=== PATIENT | female | born 1975 | race Caucasian/White ===

== ENCOUNTER 2020-09-27 11:08 | Outpatient (REF) | payer OTHER, SELFPAY | END 2020-09-27 11:09 | disposition home or self-care (01) | LOC: HO.LAB 11:08 | PROVIDERS: Visit Provider Internal Medicine | DX: Z20.828 Contact with and (suspected) exposure to other viral communicable diseases (principal) | CPT/HCPCS: C9803; U0003 ==

== ENCOUNTER 2020-10-14 07:27 | Outpatient (REF) | payer OTHER, SELFPAY | END 2020-10-14 07:28 | disposition home or self-care (01) | LOC: HO.LAB 07:27 | PROVIDERS: Visit Provider Internal Medicine | DX: Z20.828 Contact with and (suspected) exposure to other viral communicable diseases (principal) | CPT/HCPCS: C9803; U0003 ==

== ENCOUNTER → 2021-01-02 08:23 | Outpatient (BNVA) | payer OTHER, SELFPAY | PROVIDERS: PCP Internal Medicine; Visit Provider Nurse Practitioner | DX: Z13.89 Encounter for screening for other disorder (principal) | CPT/HCPCS: 99212 ==

== ENCOUNTER 2021-01-30 08:15 | Outpatient (REF) | payer OTHER, SELFPAY ==
--- NOTE | ~2021-01-30 | US_ITS ---
EXAMINATION: US ABDOMEN LIMITED CLINICAL INFORMATION: Nonalcoholic steatohepatitis. COMPARISON: Ultrasound abdomen 07/13/2019 and 11/10/2018. CT abdomen pelvis 03/05/2014. TECHNIQUE: Real-time imaging of the right upper quadrant abdominal viscera. FINDINGS: PANCREAS: Normal. LIVER: Liver echotexture is slightly increased. The liver is normal in size. The liver contour is normal. No focal hepatic lesion. There is no intrahepatic biliary duct dilatation seen. GALLBLADDER: Gallbladder is physiologically distended. There are several small echogenic nonmobile nonshadowing densities adjacent to the gallbladder wall suggestive of gallbladder wall polyps. The largest measures 2 x 3 mm. No definite gallstones are seen. The gallbladder wall does not appear thickened. There is no pericholecystic fluid. COMMON BILE DUCT: Normal in caliber measuring 0.46 cm in diameter. RIGHT KIDNEY: Normal. No hydronephrosis. No renal calculi or focal parenchymal lesions. The kidney measures 10.8 cm in maximum dimension. FREE FLUID: None. US/US abdomen limited IMPRESSION: Slightly echogenic liver. Gallbladder wall polyps.
[2021-01-30 11:31] LABS: Alanine Aminotransferase 22 U/L (0-31); Albumin Level 4.1 g/dL (3.5-5.0); Alkaline Phosphatase 62 U/L (39-117); Aspartate Amino Transferase 18 U/L (5-31); Bilirubin Direct 0.2 mg/dL (0.0-0.5); Bilirubin Total 0.4 mg/dL (0.0-1.0); Total Protein 6.6 g/dL (6.5-8.0)
[2021-01-31 11:47] LABS: Alpha Fetoprotein 3.3 ng/mL
== END 2021-01-30 08:16 | disposition home or self-care (01) ==
LOC: HO.HMGCX 08:15
PROVIDERS: PCP Internal Medicine; Visit Provider Nurse Practitioner
DX: K75.81 Nonalcoholic steatohepatitis (NASH) (principal)
CPT/HCPCS: 36415; 76705; 80076; 82105

== ENCOUNTER → 2021-05-04 08:16 | Outpatient (BNVA) | payer OTHER, SELFPAY | PROVIDERS: Visit Provider Nurse Practitioner ==

== ENCOUNTER 2021-07-09 07:46 | Outpatient (REF) | payer OTHER, SELFPAY ==
[2021-07-09 11:27] LABS: MANUAL DIFF FLAG NO
[2021-07-09 11:34] LABS: Basophils Percent Auto 0.5 % (0-2); Eosinophils Absolute Auto 0.1 X10*3/uL (0.0-0.4); Eosinophils Percent Auto 0.9 % (0-4); Hematocrit 40.8 % (37-47); Hemoglobin 13.9 g/dl (12.0-16.0); Imm Gran Abs Auto 0.02 X10*3/uL (0.00-0.03); Imm Gran Pct Auto 0.3 % (0.0-0.4); Lymphocytes Percent Auto 14.9 % (20-40); Mean Corpuscular HGB Conc 34.1 g/dl (31.0-35.0); Mean Corpuscular Volume 87.9 fL (80-98); Mean Platelet Volume 11.1 fL (9.4-12.3); Monocytes Absolute Auto 0.6 X10*3/uL (0.1-1.2); Neutrophils Absolute Auto 4.9 X10*3/uL (2.0-8.3); Neutrophils Percent Auto 74.4 % (45-73); Platelet Count 253 X10*3/uL (160-400); Red Blood Count 4.64 X10*6/uL (4.20-5.50); Red Cell Distribution Width 12.6 % (11.0-16.0); White Blood Count 6.6 X10*3/uL (4.8-10.8)
[2021-07-09 11:51] LABS: Alanine Aminotransferase 21 U/L (0-31); Anion Gap 12 (12-20); Aspartate Amino Transferase 21 U/L (5-31); Blood Urea Nitrogen 10 mg/dL (9-16); Calcium 9.3 mg/dL (8.4-10.2); Carbon Dioxide 23 mmol/L (22-29); Chloride 105 mmol/L (96-108); Cholesterol 153 mg/dL; Estimated Glomerular Filt Rate > 60; Glucose Fasting 94 mg/dL (60-99); HDL Cholesterol 56 mg/dL; LDL Cholesterol Calculated 84 mg/dl; Potassium 4.2 mmol/L (3.3-5.1); Sodium 136 mmol/L (135-145); Triglycerides 68 mg/dL
== END 2021-07-09 07:47 | disposition home or self-care (01) ==
LOC: HO.HMGCLDS 07:46
PROVIDERS: PCP Internal Medicine; Visit Provider Nurse Practitioner
DX: I10 Essential (primary) hypertension (principal)
CPT/HCPCS: 36415; 80048; 80061; 84450; 84460; 85025

== ENCOUNTER 2021-09-25 07:52 | Outpatient (REF) | payer OTHER, SELFPAY ==
[2021-09-27 19:51] LABS: TS Negative Control Passed; TS Panel A 0; TS Panel B 0; TS Positive Control Passed; TSpotTB Negative (Negative)
== END 2021-09-25 07:53 | disposition home or self-care (01) ==
LOC: HO.HMGCLDS 07:52
PROVIDERS: PCP Internal Medicine; Visit Provider Internal Medicine
DX: Z11.1 Encounter for screening for respiratory tuberculosis (principal)
CPT/HCPCS: 36415; 86481

== ENCOUNTER 2022-03-01 08:20 | Outpatient (REF) | payer OTHER, SELFPAY | END 2022-03-01 08:21 | disposition home or self-care (01) | LOC: HO.LNP 08:20 | PROVIDERS: Visit Provider Nurse Practitioner | DX: R19.7 Diarrhea, unspecified (principal) | CPT/HCPCS: 87045; 87046 ==

== ENCOUNTER 2022-03-07 08:08 | Outpatient (REF) | payer OTHER, SELFPAY ==
[2022-03-07 09:08] LABS: MANUAL DIFF FLAG NO
[2022-03-07 09:58] LABS: Basophils Percent Auto 0.4 % (0-2); Eosinophils Absolute Auto 0.1 X10*3/uL (0.0-0.4); Eosinophils Percent Auto 0.7 % (0-4); Hemoglobin 14.7 g/dl (12.0-16.0); Imm Gran Abs Auto 0.02 X10*3/uL (0.00-0.03); Imm Gran Pct Auto 0.3 % (0.0-0.4); Lymphocytes Absolute Auto 1.3 X10*3/uL (1.2-4.9); Lymphocytes Percent Auto 19.4 % (20-40); Mean Corpuscular HGB Conc 33.4 g/dl (31.0-35.0); Mean Corpuscular Hemoglobin 29.8 pg (27.0-33.0); Mean Corpuscular Volume 89.1 fL (80.0-98.0); Mean Platelet Volume 10.4 fL (9.4-12.3); Monocytes Absolute Auto 0.6 X10*3/uL (0.1-1.2); Monocytes Percent Auto 9.1 % (2-11); Neutrophils Absolute Auto 4.8 x10*3/uL (2.0-8.3); Neutrophils Percent Auto 70.1 % (45-73); Platelet Count 293 X10*3/uL (160-400); Red Blood Count 4.94 X10*6/uL (4.20-5.50); Red Cell Distribution Width 12.4 % (11.0-16.0); White Blood Count 6.9 X10*3/uL (4.8-10.8)
[2022-03-07 10:17] LABS: Alanine Aminotransferase 33 U/L (0-31); Albumin Level 4.5 g/dL (3.5-5.0); Alkaline Phosphatase 81 U/L (39-117); Anion Gap 11 (12-20); Aspartate Amino Transferase 23 U/L (5-31); Bilirubin Total 0.4 mg/dL (0.0-1.0); Blood Urea Nitrogen 17 mg/dL (9-16); Calcium 10.1 mg/dL (8.4-10.2); Carbon Dioxide 26 mmol/L (22-29); Chloride 104 mmol/L (96-108); Estimated Glomerular Filt Rate > 60; Glucose Random 104 mg/dL (60-115); Potassium 4.8 mmol/L (3.3-5.1); Sodium 136 mmol/L (135-145); Total Protein 7.7 g/dL (6.5-8.0)
[2022-03-13 11:10] LABS: Alpha Fetoprotein 4.1 ng/mL
== END 2022-03-07 08:09 | disposition home or self-care (01) ==
LOC: HO.LAB 08:08
PROVIDERS: PCP Internal Medicine; Referring Provider Internal Medicine; Visit Provider Nurse Practitioner
DX: K75.81 Nonalcoholic steatohepatitis (NASH) (principal)
CPT/HCPCS: 36415; 80053; 82105; 85025; 99212

== ENCOUNTER 2022-04-08 08:06 | Outpatient (REF) | payer OTHER, SELFPAY ==
--- NOTE | ~2022-04-08 | US_ITS ---
EXAMINATION: US ABDOMEN LIMITED CLINICAL INFORMATION: Nonalcoholic steatohepatitis. COMPARISON: Limited abdominal ultrasound 01/30/2021. Ultrasound abdomen 07/13/2019. CT abdomen and pelvis 03/05/2014. TECHNIQUE: Real-time imaging of the right upper quadrant abdominal viscera. FINDINGS: PANCREAS: Normal. LIVER: Normal. The liver is normal in size. The liver contour is normal. Parenchymal echogenicity is normal. No focal hepatic lesion. There is no intrahepatic biliary duct dilatation seen. GALLBLADDER: Normal The gallbladder is physiologically distended without evidence of stones, sludge, polyps, wall thickening or pericholecystic fluid. The previously seen gallbladder polyps are not appreciated on the current exam. COMMON BILE DUCT: Normal in caliber measuring 0.5 cm in diameter. RIGHT KIDNEY: Mild fullness of the right renal pelvis. No hydronephrosis. No renal calculi or focal parenchymal lesions. The kidney measures 11.6 cm in maximum dimension. FREE FLUID: None. US/US abdomen limited IMPRESSION: Normal-appearing liver. Normal-appearing gallbladder. Previously identified gallbladder wall polyps not appreciated on the current exam.
[2022-04-13 16:57] LABS: Pancreatic Elastase-1 486 mcg/g
== END 2022-04-08 08:07 | disposition home or self-care (01) ==
LOC: HO.US 08:06
PROVIDERS: PCP Internal Medicine; Visit Provider Nurse Practitioner
DX: K75.81 Nonalcoholic steatohepatitis (NASH) (principal); K58.0 Irritable bowel syndrome with diarrhea
CPT/HCPCS: 76705; 82656

== ENCOUNTER → 2022-04-16 08:01 | Outpatient (BNVA) | payer OTHER, SELFPAY | PROVIDERS: PCP Internal Medicine; Visit Provider Nurse Practitioner | DX: K58.0 Irritable bowel syndrome with diarrhea (principal); K21.9 Gastro-esophageal reflux disease without esophagitis; K75.81 Nonalcoholic steatohepatitis (NASH) | CPT/HCPCS: 99212 ==

== ENCOUNTER → 2022-06-26 08:24 | Outpatient (BNVA) | payer OTHER, SELFPAY | PROVIDERS: PCP Internal Medicine; Visit Provider Nurse Practitioner | DX: K58.0 Irritable bowel syndrome with diarrhea (principal); K63.89 Other specified diseases of intestine; K75.81 Nonalcoholic steatohepatitis (NASH) | CPT/HCPCS: 99212 ==

== ENCOUNTER → 2022-09-04 08:13 | Outpatient (BNVA) | payer OTHER, SELFPAY | PROVIDERS: PCP Internal Medicine; Visit Provider Nurse Practitioner | DX: K58.0 Irritable bowel syndrome with diarrhea (principal); A04.4 Other intestinal Escherichia coli infections; K63.89 Other specified diseases of intestine; K75.81 Nonalcoholic steatohepatitis (NASH) | CPT/HCPCS: 99212 ==

== ENCOUNTER 2022-10-31 09:07 | Outpatient (REF) | payer OTHER, SELFPAY ==
--- NOTE | ~2022-10-31 | US_ITS ---
EXAMINATION: US ABDOMEN LIMITED CLINICAL INFORMATION: Nonalcoholic steatohepatitis. COMPARISON: Limited abdominal ultrasound 04/08/2022 and 01/30/2021. CT abdomen and pelvis 03/05/2014. TECHNIQUE: Real-time imaging of the right upper quadrant abdominal viscera. FINDINGS: PANCREAS: Normal. LIVER: The liver is normal in size. The liver contour is normal. Diffusely increased hepatic echogenicity and sound attenuation consistent with diffuse hepatic steatosis. No focal hepatic lesion. There is no intrahepatic biliary duct dilatation seen. GALLBLADDER: Previously seen gallbladder wall polyps not appreciated. The gallbladder is physiologically distended without evidence of stones, sludge, wall thickening or pericholecystic fluid. COMMON BILE DUCT: Normal in caliber measuring 0.5 cm in diameter. RIGHT KIDNEY: Normal. No hydronephrosis. No renal calculi or focal parenchymal lesions. The kidney measures 11.2 cm in maximum dimension. FREE FLUID: None. US/US abdomen limited IMPRESSION: Findings consistent with diffuse hepatic steatosis. Previously noted gallbladder wall polyps not shown.
[2022-10-31 11:34] LABS: Color Urine Yellow; Glucose Urine UA Negative (Negative); Leukocyte Esterase Urine Negative (Negative); Nitrite Urine Negative (Negative); PH 6.5 (5.0-9.0); Urine Blood Negative (Negative); Urine Ketones Negative (Negative); Urine Protein Negative (Neg-Trace)
[2022-10-31 11:36] LABS: Appearance Urine Clear
[2022-10-31 11:51] LABS: Glucose Fasting 107 mg/dL (60-99)
[2022-10-31 12:00] LABS: Alanine Aminotransferase 96 U/L (0-31); Albumin Level 4.4 g/dL (3.5-5.0); Alkaline Phosphatase 78 U/L (39-117); Aspartate Amino Transferase 56 U/L (5-31); Bilirubin Direct 0.2 mg/dL (0.0-0.5); Bilirubin Total 0.5 mg/dL (0.0-1.0); Cholesterol 183 mg/dL; HDL Cholesterol 58 mg/dL; LDL Cholesterol Calculated 111 mg/dl; Total Protein 7.2 g/dL (6.5-8.0); Triglycerides 70 mg/dL
[2022-11-05 13:04] LABS: Mitochondrial Antibodies NEGATIVE (NEGATIVE)
[2022-11-05 23:29] LABS: Smooth Muscle Antibody <20 U (<20)
== END 2022-10-31 09:08 | disposition home or self-care (01) ==
LOC: HO.HMGCX 09:07
PROVIDERS: Absent Provider Internal Medicine; PCP Internal Medicine; Visit Provider Nurse Practitioner
DX: Z00.01 Encounter for general adult medical examination with abnormal findings (principal); K75.81 Nonalcoholic steatohepatitis (NASH); R35.0 Frequency of micturition
CPT/HCPCS: 36415; 76705; 80061; 80076; 81003; 82105; 82947; 86015; 86255; 86256

== ENCOUNTER → 2022-11-07 08:13 | Outpatient (BNVA) | payer OTHER, SELFPAY | PROVIDERS: PCP Internal Medicine; Visit Provider Nurse Practitioner | DX: K75.81 Nonalcoholic steatohepatitis (NASH) (principal); K58.0 Irritable bowel syndrome with diarrhea | CPT/HCPCS: 99212 ==

== ENCOUNTER → 2023-01-24 08:09 | Outpatient (BNVA) | payer OTHER, SELFPAY | PROVIDERS: PCP Internal Medicine; Referring Provider Internal Medicine; Visit Provider Nurse Practitioner | DX: K58.0 Irritable bowel syndrome with diarrhea (principal); K75.81 Nonalcoholic steatohepatitis (NASH); F41.1 Generalized anxiety disorder | CPT/HCPCS: 99212 ==

== ENCOUNTER 2023-07-09 08:29 | Outpatient (AMB) | payer OTHER, SELFPAY ==
[2023-07-09 08:36] VITALS: BP 132/78; BMI 28.5
--- NOTE | 2023-07-09 08:36 | MHC.OFFVIS ---
Intake Vital Signs 07/09/23 08:36 Height 5 ft 6 in Weight 176 lb 12.972 oz BMI 28.5 BP 132/78 Blood Pressure Location Lt brachial Position Sitting Intake Visit Reasons: 3 months Intake Note: Patient presents to in office visit today in follow up diarrhea. CC: is the same issue, diarrhea its an ongoing thing . Pt denies other GI concerns today. Powder Nipper Required: No Accompanied by: Self / Same As Patient Allergies Aluminum Allergy (Unknown, Verified 07/09/23 08:39) tingling, rash, rash nickel [NICKEL] Allergy (Unknown, Verified 07/09/23 08:39) RASH Sulfa (Sulfonamide Antibiotics) [SULFA (SULFONAMIDE ANTIBIOTICS)] Allergy (Unknown, Verified 07/09/23 08:39) DIFF BREATHING, rash, oral swelling, SOB HPI 3 months HPI Details Assessment & Plan (1) Irritable bowel syndrome with diarrhea: ?Code(s): K58.0 - Irritable bowel syndrome with diarrhea ?Plan: She does not like the idea of creon and instead has been taking milk thistle and this has helped her bowels, she thinks.? She objects to the Creon because she says ?then I have to always keep taking it. ?.? However, I point out that the same is true of the milk thistle.? I think she wants to practice a more holistic approach and this fine so I educate her that Creon really is a natural substance that are body makes to help us digest foods.? Nevertheless, I am totally fine with her just using the milk thistle for a while and let us see how it goes.? She has a small subconjunctival hemorrhage in her inner canthus left eye today. ? coughing/rubbing.? She questions and this is related to her liver but I reassure her that with her current liver function this is not likely.? It is more likely related to her chronic aspirin therapy and is a minor an un concerning affect. She has a lot of questions asking if her liver is causing her to have greasy stools.? I tell her that that is not true this is more a function of water pancreas is producing are not producing.? She has ends concerned about pancreatic cancer and ?what is wrong with my organs? ? I let her know that it is not a matter of a major pathology simply that we all age differently and sometimes are organs change how sufficiently they can process certain foods depending on our genetic background.? I encouraged her that as long as she maintains her healthy lifestyle, she exercises and watches her diet, she her liver should be fine for the rest of her life.? She was referred to me to make sure there were no other concerning processes and to be monitored.? I explained this is a chronic condition much like hypertension the just needs to be monitored so that there was no end-organ damage.? She tells me she has avoid alcohol completely since we last met.? And while this is fine the only problem would be if she drank on a daily basis having an occasional drink is not going to be a problem.? I also counseled her that she should not worry about utilizing [id number] medications so long as she follows the instructions on the box and does not exceed recommended dosages. After this she feels quite reassured.? This was a long Education session given the level of her anxiety and I do not want her stressing about this situation since stress can bring its own set of problems. ROV 3 mos.? At this time we will run more liver enzymes and do another ultrasound check her progress. (2) BERTRAND (nonalcoholic steatohepatitis): ?Comment: ?2018 AST/ALT 26/51 with the remainder normal, baseline alpha fetoprotein 3.6, ferritin 29, 02/2018 hepatitis a B and C negative, JOSEPH 2018 negative She says she is insulin resistant was on metformin when . 10/11/1901/05/23 ?07:5509:25 Anti-Mitochondrial Ab NEGATIVE Anti-Smooth Muscle Ab <20 HIV 1&2 Antigen & Ab negative * CURRENT LABS 10/31/2300/05/23 ?09:2509:25 Total Bilirubin 0.5 Direct Bilirubin 0.2 AST 56 H ALT 96 H Alkaline Phosphatase 78 Alpha Fetoprotein 4.0 ULTRASOUND OF THE ABDOMEN? 11/05/22 IMPRESSION: Findings consistent with diffuse hepatic steatosis. ? Previously noted gallbladder wall polyps not shown. ?Code(s): K75.81 - Nonalcoholic steatohepatitis (BERTRAND) (3) Generalized anxiety disorder: ?Code(s): F41.1 - Generalized anxiety disorder : TODAYS VISIT She still has not tried the creon. She only has success with her stooling when she takes her wild oregano or an antimicrobial. She still feels that the e coli infection is still in her. She has lost weight, she has been running more and this may be why. She is also taking Milk Thistle. She plans to continue this. She is agreeable to having repeat labs and an US. She will also be seeing her PCP soon and will require labs for this as well. She asks if she can try retreating with Xifaxan and I think this is reasonable given that has helped with her gas bloating and diarrhea in the past. after US [facility] Medical History Essential hypertension Lymphopenia Generalized anxiety disorder BERTRAND (nonalcoholic steatohepatitis) GERD (gastroesophageal reflux disease) Irritable bowel syndrome with diarrhea Surgical History History of esophagogastroduodenoscopy (EGD) H/O colonoscopy Family History Mother Rheumatoid arthritis Social History Household Members: Children Housing: Apartment Alcohol intake: current Alcohol intake frequency: does not drink Patient Tobacco Use Status: Former Tobacco user e-Cigarette/Vaping Use: Never Used Current occupational status: employed Cognitive needs: No Hearing needs: No Vision needs: No Review of Systems Const Denies fatigue, Denies fever(s), Denies night sweats, Denies poor appetite and Reports weight loss ENT Reports Normal hearing present, Denies dental pain, Denies dysphagia, Denies hearing loss, Denies mouth pain, Denies odynophagia, Denies throat swelling, Denies tongue swelling and Reports other (Dentition adequate) Card Reports no additional complaints Resp Reports no additional complaints GI Denies abdominal pain, Denies melena, Reports bloating, Denies hematochezia, Denies constipation, Denies GI cramping, Denies dysphagia, Denies excessive flatus, Denies early satiety, Denies heartburn, Reports diarrhea, Denies nausea, Denies odynophagia, Denies vomiting and Denies hematemesis Skin/Breast Denies pruritus, Denies lesions, Denies rash and Denies jaundice Neuro Reports Normal hearing present and Denies Abnormal speech present Endo Denies fatigue Aller/Immun Denies throat swelling and Denies tongue swelling Physical Exam Vital Signs: Last Vital Signs BP 132/78 07/09/23 08:36 BMI result Body Mass Index 28.5 Const General: cooperative, no acute distress, well developed and well groomed Nutritional Appearance: average body habitus and well nourished Orientation/consciousness: oriented to person, oriented to place and oriented to time Limitations: No language barrier HEENT Head: Yes normocephalic and Yes atraumatic Eyes General: appearance normal, both eyes and all related structures Pupils: Equal, round and reactive pupils present Neck Neck: Yes normal visual inspection and Yes no lymphadenopathy Thyroid: Thyroid normal Resp Effort & Inspection: normal respiratory effort and able to speak in complete sentences Auscultation: clear to auscultation bilaterally Cardio Rate: regular rate Rhythm: regular rhythm Heart sounds: Normal, physiologic split S2 sound present Peripheral pulses: radial pulses present and posterior tibial pulses present GI Inspection: No distended and No Abdominal panniculus present Palpation (GI): Soft to palpation, nontender, no guarding, not rigid and No hepatosplenomegaly present Percussion: Yes normal to percussion Auscultation: normal bowel sounds Rectal Exam - Female: deferred Skin General skin exam: no rashes or lesions noted, turgor normal, skin not dry, no jaundice, No spider nevi and no striae Rashes: no rashes Nails: normal Neuro General: oriented to person, oriented to place and oriented to time Cranial nerves: Yes Equal, round and reactive pupils present and Yes Normal hearing present Speech: No Abnormal speech present Extrem General: Yes normal to inspection, No clubbing, No cyanosis and No edema Psych Appearance: grossly normal and well kempt Mental Status: mental status grossly normal Speech and movement: Normal speech and movement present Affect: normal affect Attitude: cooperative Thought process: Normal thought process present and not confabulating Thought content: Normal thought content present Insight: Limited insight present (Psych) Judgement: Limited judgement present (Psych) Assessment & Plan Assessment & Plan (1) Irritable bowel syndrome with diarrhea: Code(s): K58.0 - Irritable bowel syndrome with diarrhea Plan: She still has not tried the creon. She only has success with her stooling when she takes her wild oregano or an antimicrobial. She still feels that the e coli infection is still in her. She has lost weight, she has been running more and this may be why. She is also taking Milk Thistle. She plans to continue this. She is agreeable to having repeat labs and an US. She will also be seeing her PCP soon and will require labs for this as well. She asks if she can try retreating with Xifaxan and I think this is reasonable given that has helped with her gas bloating and diarrhea in the past. after US (2) Small intestinal bacterial overgrowth: Code(s): K63.89 - Other specified diseases of intestine (3) BERTRAND (nonalcoholic steatohepatitis): Comment: 2018 AST/ALT 26/51 with the remainder normal, baseline alpha fetoprotein 3.6, ferritin 29, 02/2018 hepatitis a B and C negative, JOSEPH 2017 negative She says she is insulin resistant was on metformin when . 10/11/1901/05/23 07:5509:25 Anti-Mitochondrial Ab NEGATIVE Anti-Smooth Muscle Ab <20 HIV 1&2 Antigen & Ab negative * CURRENT LABS 10/31/2300/05/23 09:2509:25 Total Bilirubin 0.5 Direct Bilirubin 0.2 AST 56 H ALT 96 H Alkaline Phosphatase 78 Alpha Fetoprotein 4.0 ULTRASOUND OF THE ABDOMEN 11/05/22 IMPRESSION: Findings consistent with diffuse hepatic steatosis. ? Previously noted gallbladder wall polyps not shown. Code(s): K75.81 - Nonalcoholic steatohepatitis (BERTRAND) Orders: Orders Liver Panel Today K75.81 - Nonalcoholic steatohepatitis (BERTRAND) Alpha Fetoprotein Today K75.81 - Nonalcoholic steatohepatitis (BERTRAND) US abdomen complete Today K75.81 - Nonalcoholic steatohepatitis (BERTRAND) Medications: New rifaximin (Xifaxan) 550 mg PO BID 10 days 20 tabs 0RF K63.89 - Other specified diseases of intestine Coding Level of Care Code Est Pt Level 3 (28866) Diagnoses Irritable bowel syndrome with diarrhea K58.0 Small intestinal bacterial overgrowth K63.89 BERTRAND (nonalcoholic steatohepatitis) K75.81
== END 2023-07-09 10:02 | disposition home or self-care (01) ==
PROVIDERS: PCP Internal Medicine; Visit Provider Nurse Practitioner
DX: K58.0 Irritable bowel syndrome with diarrhea (principal); K63.89 Other specified diseases of intestine; K75.81 Nonalcoholic steatohepatitis (NASH)
CPT/HCPCS: 99213

== ENCOUNTER → 2023-07-09 08:29 | Outpatient (BNVA) | payer OTHER, SELFPAY | PROVIDERS: PCP Internal Medicine; Visit Provider Nurse Practitioner | DX: K58.0 Irritable bowel syndrome with diarrhea (principal); K75.81 Nonalcoholic steatohepatitis (NASH); K63.89 Other specified diseases of intestine | CPT/HCPCS: 99212 ==

== ENCOUNTER 2023-07-29 08:29 | Outpatient (REF) | payer OTHER, SELFPAY ==
--- NOTE | ~2023-07-29 | US_ITS ---
EXAMINATION: US ABDOMEN COMPLETE CLINICAL INFORMATION: Nonalcoholic steatohepatitis (BERTRAND). COMPARISON: Ultrasound abdomen limited 10/31/2022 and 04/08/2022. CT abdomen and pelvis 03/05/2014. TECHNIQUE: Real-time imaging of the abdominal viscera. FINDINGS: PANCREAS: Normal. ABDOMINAL AORTA: The proximal, mid, and distal segments are normal in caliber. INFERIOR VENA CAVA: Visualized portions are normal. LIVER: The liver is normal in size. The liver contour is normal. There is diffuse increased liver parenchymal echogenicity, consistent with hepatic steatosis. No focal hepatic lesion. There is no intrahepatic biliary duct dilatation seen. GALLBLADDER: Gallbladder appears normal. COMMON BILE DUCT: Normal in caliber measuring 0.9 cm in diameter. RIGHT KIDNEY: Normal. No hydronephrosis. No renal calculi or focal parenchymal lesions. The kidney measures 10.5 cm in maximum dimension. LEFT KIDNEY: Normal. No hydronephrosis. No renal calculi or focal parenchymal lesions. The kidney measures 9.7 cm in maximum dimension. SPLEEN: Normal. The spleen measures 9.6 cm in maximum dimension. FREE FLUID: None. US/US abdomen complete IMPRESSION: Hepatic steatosis. Otherwise normal abdominal ultrasound.
[2023-07-29 12:30] LABS: Alanine Aminotransferase 21 U/L (0-31); Albumin Level 4.3 g/dL (3.5-5.0); Alkaline Phosphatase 63 U/L (39-117); Aspartate Amino Transferase 17 U/L (5-31); Bilirubin Direct 0.2 mg/dL (0.0-0.5); Bilirubin Total 0.5 mg/dL (0.0-1.0)
[2023-07-31 12:48] LABS: Alpha Fetoprotein 3.2 ng/mL
== END 2023-07-29 08:30 | disposition home or self-care (01) ==
LOC: HO.HMGCX 08:29
PROVIDERS: PCP Internal Medicine; Visit Provider Nurse Practitioner
DX: K75.81 Nonalcoholic steatohepatitis (NASH) (principal)
CPT/HCPCS: 36415; 76700; 80076; 82105

== ENCOUNTER 2023-08-14 07:56 | Outpatient (AMB) | payer OTHER, SELFPAY ==
--- NOTE | 2023-08-14 08:03 | MHC.PC.OV ---
Vital Signs 08/14/23 08:06 Height 5 ft 7 in Weight 176 lb 4 oz BMI 27.6 BP 136/80 Blood Pressure Location Lt brachial Position Sitting Pulse 75 Pulse Source Pulse Oximeter Pulse Oximetry (%) 99 Oxygen Delivery Method Room Air Intake Visit Reasons: PE Intake Note: pt is here for a PE pt wants flu vaccine pap last yr at [facility] Is last menstrual period known: Yes Last menstrual period: 07/27/23 Allergies Aluminum Allergy (Unknown, Verified 08/14/23 08:31) tingling, rash, rash nickel [NICKEL] Allergy (Unknown, Verified 08/14/23 08:31) RASH Sulfa (Sulfonamide Antibiotics) [SULFA (SULFONAMIDE ANTIBIOTICS)] Allergy (Unknown, Verified 08/14/23 08:31) DIFF BREATHING, rash, oral swelling, SOB Medication List - Last Reconciled 08/14/23 by Anne Grey MD amlodipine 5 mg PO DAILY aspirin (Adult Low Dose Aspirin) 81 mg PO DAILY cholecalciferol (vitamin D3) 50 mcg PO DAILY clonidine HCl 0.2 mg PO BEDTIME cyanocobalamin (vitamin B-12) (Vitamin B-12) 50 mcg PO DAILY fluoxetine 40 mg PO DAILY lorazepam 1 mg PO DAILY multivitamin (Daily Multi-Vitamin tablet) 1 tab PO DAILY rifaximin (Xifaxan) 550 mg PO TID 14 days Tobacco use date assessed: 08/14/23 Dental Screening Dental Screen Date: 08/14/23 Did you have a dental visit in the last 12 months?: Yes Did you have a dental problem in the last 6 months where you did not have access to dental care?: No Was dental information given to patient?: Patient has dentist HPI PE HPI Details 48-year-old lady hypertension, IBS with diarrhea, generalized anxiety disorder, here today for physical exam. Has been feeling well with no complaints at present time. She goes to [facility] for her routine Pap and pelvic exam, done by Dr. Chinmay Schafer 03/07/2022 with negative findings. She has a longstanding history of hesitancy of undergoing mammogram due to radiation involved, and gets screening breast ultrasound, last done at [facility] 06/13/2022, with negative findings. She is up-to-date with her screening colonoscopy done by Dr. Zimmerman in 2014, due again in 2024 [facility] Medical History (Updated 08/14/23 @ 08:51 by Anne Grey MD) History of thyroid nodule Essential hypertension Lymphopenia Generalized anxiety disorder BERTRAND (nonalcoholic steatohepatitis) GERD (gastroesophageal reflux disease) Irritable bowel syndrome with diarrhea Surgical History History of esophagogastroduodenoscopy (EGD) H/O colonoscopy Family History Mother Rheumatoid arthritis Social History Household Members: Children Housing: Apartment Alcohol intake: current Alcohol intake frequency: does not drink Patient Tobacco Use Status: Former Tobacco user e-Cigarette/Vaping Use: Never Used Current occupational status: employed Cognitive needs: No Hearing needs: No Vision needs: No Female Reproductive History Menstrual Date of last menstrual period: 07/27/23 Other: goes to [facility] OBGY , gets breast US for screening , not mammogram Questionnaire PHQ-9 Over the last 2 weeks, how often have you been bothered by any of the following problems? 1. Little interest or pleasure in doing things: not at all 2. Feeling down, depressed, or hopeless: not at all 3. Trouble falling or staying asleep, or sleeping too much: more than half the days 4. Feeling tired or having little energy: not at all 5. Poor appetite or overeating: several days 6. Feeling bad about yourself - or that you are a failure or have let yourself or your family down: not at all 7. Trouble concentrating on things, such as reading the newspaper or watching television: not at all 8. Moving or speaking so slowly that other people could have noticed. Or the opposite - being so fidgety or restless that you have been moving around a lot more than usual: not at all 9. Thoughts that you would be better off or of hurting yourself in some way: not at all Total score: 3 Depression Screening Interpretation: Negative Depression Screening Done: Yes 83621 - PHQ-9 Billing: Yes Source: Developed by Drs. Luc Ruiz, Penny Lord, Arnoldo Fink and colleagues, with an educational lisa from [employer]. Thrive Questionnaire Date Thrive assessed: 08/14/23 I am a: Patient What is your living situation today?: I have a steady place to live Within the past 12 months, did the food you bought not last and you didn't have the money to get more?: Never true Within the past 12 months, did you worry whether your food would run out before you got money to buy more?: Never true Do you have trouble paying for medicines?: No Do you have trouble getting transportation to medical appointments?: No Do you have trouble paying your heating and electricity bill?: No Do you have trouble taking care of your child, family member or friend?: No Do you have trouble with day-to-day activities such as bathing, preparing meals, shopping, managing finances, etc.?: No Are you currently unemployed and looking for a job?: No Are you interested in more education?: No AUDIT C Alcohol Use Questionnaire (AUDIT-C) 1. How often do you have a drink containing alcohol?: 2-4 times a month 2. How many drinks containing alcohol do you have on a typical day when you are drinking?: 1 or 2 3. How often do you have six or more drinks on one occasion?: Never Total Score: 2 KALI-7 AMB Questionnaire KALI-7 Date KALI - 7 assessed: 08/14/23 Feeling nervous, anxious, or on edge: 1 = Several days Not being able to stop or control worryin = More than half the days Worrying too much about different things: 2 = More than half the days Trouble relaxin = Several days Being so restless that it is hard to sit still: 0 = Not at all Becoming easily annoyed or irritable: 0 = Not at all Feeling afraid as if something awful might happen: 0 = Not at all Total KALI-7 score (0-4 normal; 5-9 mild; 10-14 moderate; 15-21 severe): 6 Source: Developed by Drs. Luc Ruiz, Penny Lord, Arnoldo Fink and colleagues, with an educational lisa from [employer]. KALI-7 Assessment Billing KALI-7 Assessment Tool: KALI-7 Assessment 58167 Review of Systems Const Denies fever(s), Denies night sweats, Denies poor appetite and Reports weight loss Eyes Reports no additional complaints ENT Reports Normal hearing present, Denies dental pain, Denies dysphagia, Denies hearing loss, Denies mouth pain, Denies odynophagia, Denies throat swelling and Denies tongue swelling Card Reports no additional complaints Resp Reports no additional complaints GI Denies abdominal pain, Denies melena, Reports bloating, Denies hematochezia, Denies constipation, Denies GI cramping, Denies dysphagia, Denies excessive flatus, Denies early satiety, Denies heartburn, Reports diarrhea, Denies nausea, Denies odynophagia, Denies vomiting and Denies hematemesis Reports no additional complaints Musc Reports no additional complaints Skin/Breast Denies breast pain, Denies breast mass, Denies pruritus, Denies lesions, Denies rash and Denies jaundice Neuro Reports no additional complaints, Reports Normal hearing present and Denies Abnormal speech present Psych Reports no additional complaints Endo Reports no additional complaints Jd/Lymph Reports no additional complaints Aller/Immun Denies throat swelling and Denies tongue swelling Physical exam (Primary Care) Vital Signs: Last Vital Signs Pulse 75 08/14/23 08:06 BP 136/80 08/14/23 08:06 Pulse Ox 99 08/14/23 08:06 Oxygen Delivery Method Room Air 08/14/23 08:06 BMI result Body Mass Index 27.6 Tobacco/Smoking Status: Tobacco use Status Tobacco use date assessed 08/14/23 08/14/23 08:17 Patient Tobacco Use Status Former Tobacco user 08/14/23 08:03 e-Cigarette/Vaping Use Never Used 08/14/23 08:03 PHQ-9: PHQ-9 Score PHQ-9: Total score 5 08/15/23 00:39 Depression Screening Interpretation: Negative Thrive Assessment: Date of Thrive Assessment Date Thrive assessed 08/14/23 08/14/23 08:32 Const General: cooperative, comfortable and no acute distress Orientation/consciousness: patient oriented x3 HENMT Ears: hearing grossly normal bilaterally, external ears normal and Abnormal EAC present excessive cerumen General nose exam: Normal external nose present, Normal nasal mucous membranes and turbinates present and No nasal discharge present Mouth: oropharynx normal and moist mucous membranes Eyes General: appearance normal, both eyes and all related structures Conjunctivae: conjunctivae normal Pupils: Equal, round and reactive pupils present EOM: EOMs intact bilaterally Neck Neck: Yes full ROM, Yes no lymphadenopathy and Yes supple Thyroid: solitary palpable nodule on the right Chest Chest palpation & inspection: normal inspection of the chest and normal palpation of entire chest wall Breast/axilla palpation: normal palpation of the breasts and normal palpation of the axillae Resp Effort & Inspection: normal respiratory effort and able to speak in complete sentences Auscultation: clear to auscultation bilaterally Cardio Rate: regular rate Rhythm: regular rhythm Heart sounds: S1 normal heart sound present and S2 normal heart sound present GI Inspection: Yes normal to inspection Palpation (GI): Soft to palpation, nontender and no masses Auscultation: normal bowel sounds General: Yes deferred (Up-to-date with Pap and pelvic exam 03/07/2022 done at [facility]) Back/Spine/Pelvis Cervical Spine: cervical ROM normal Thoracic/Lumbar Spine: thoracic and lumbar spine normal to inspection Skin Other: Hello Kira tattoo on lower back General skin exam: no rashes or lesions noted Neuro General: patient oriented x3, gait normal, tone normal, moves all extremities, Normal light touch and pain sensation and no focal motor deficits Cranial nerves: Yes Equal, round and reactive pupils present and Yes Normal hearing present Cognition (Neuro): normal cognition Speech: No Abnormal speech present Gait exam (Neuro): Normal gait present Motor exam (neuro): 5/5 motor strength present throughout Extrem General: Yes full ROM, Yes no joint enlargement, Yes no pedal edema, Yes no calf tenderness and Yes normal gait Psych Appearance: grossly normal Mental Status: mental status grossly normal Speech and movement: Normal speech and movement present Affect: normal affect Attitude: cooperative Office Procedures Flu Questionnaire Does the patient have a severe egg allergy?: No Does the patient have severe life threatening allergies?: No Does the patient have a fever or illness today?: No Has the patient ever had Guillain-Greenfield Syndrome?: No Has the patient ever had any past reaction to a flu shot?: No Immunizations flu vacc [id number] 6mos up(PF) 60 mcg(15 mcgx4)/0.5 mL IM syringe Performing Provider: Anne Grey MD Performing Location: [facility] Administered by: Maria G Minaya CMA on 08/14/23 08:24 Dose Route Admin Location Dispensed Lot Number Expiration Date NDC Gym Manager 0.5 mL IM Right Deltoid 0.5 mL [id number] 04/25/24 [id number] [employer] VIS Given Date VIS Provided VIS Publication Date 08/14/23 Single Vaccine 21 Eligibility Eligibility Date Funding Source Not VFC Eligible 08/14/23 Private Results Reviewed Results Reviewed: NTERED: 07/29/23-[address]: Anne Grey MD ORDERED: Liver Panel Test Result Flag Reference Site Total Bili 0.5 0.0-1.0 mg/dL Direct Bili 0.2 0.0-0.5 mg/dL AST (GOT) 17 5-31 U/L ALT (GPT) 21 0-31 U/L Protein, Total 7.0 6.5-8.0 g/dL Alb 4.3 3.5-5.0 g/dL Alk Phos 63 39-117 U/L Assessment and Plan Assessment & Plan (1) Annual visit for general adult medical examination with abnormal findings: Code(s): Z00.01 - Encounter for general adult medical examination with abnormal findings Plan: Will check appropriate labs. Recommended dental visit every 6 months and regular eye exams, at least every 2 years. Take adequate calcium in diet and vitamin-D 3 at 2000 IU per cap once a day, in addition to weight-bearing exercises to help maintain good muscle tone and weight control. Instructed to do self-breast exam, and currently up-to-date with her yearly mammogram, and cervical cancer screening, goes to [facility] OBGYN, sees Dr. Chinmay Schafer. Up-to-date with her screening Colonoscopy due again in 2024. Flu vaccine given today, reminded to get her COVID booster. Up-to-date with Tdap (2) Generalized anxiety disorder: Code(s): F41.1 - Generalized anxiety disorder Plan: Continue with clonidine, lorazepam as needed and fluoxetine, sees therapist regularly (3) Irritable bowel syndrome with diarrhea: Code(s): K58.0 - Irritable bowel syndrome with diarrhea Plan: Currently on rifaximin, followed by GI (4) Essential hypertension: Code(s): I10 - Essential (primary) hypertension Plan: Blood pressure at goal of less than 130/80. Continue with amlodipine 5 mg daily. Reinforced importance of following a low sodium diet, getting regular exercise, and lowering stress levels. (5) History of thyroid nodule: Code(s): Z86.39 - Personal history of other endocrine, nutritional and metabolic disease Plan: Thyroid ultrasound ordered as well as free T4 and TSH level Orders: Orders Influenza [id number] Immunization 08/14/23 Z23 - Encounter for immunization Vitamin D 25-OH Total 08/14/23 F41.1 - Generalized anxiety disorder, I10 - Essential (primary) hypertension, K58.0 - Irritable bowel syndrome with diarrhea, Z00.01 - Encounter for general adult medical examination with abnormal findings Basic Metabolic Panel Fasting 08/14/23 F41.1 - Generalized anxiety disorder, I10 - Essential (primary) hypertension, K58.0 - Irritable bowel syndrome with diarrhea, Z00.01 - Encounter for general adult medical examination with abnormal findings TSH reflex Free T4 08/14/23 Z86.39 - Personal history of other endocrine, nutritional and metabolic disease Lipid Panel 08/14/23 F41.1 - Generalized anxiety disorder, I10 - Essential (primary) hypertension, K58.0 - Irritable bowel syndrome with diarrhea, Z00.01 - Encounter for general adult medical examination with abnormal findings Complete Blood Count Auto Diff 08/14/23 F41.1 - Generalized anxiety disorder, I10 - Essential (primary) hypertension, K58.0 - Irritable bowel syndrome with diarrhea, Z00.01 - Encounter for general adult medical examination with abnormal findings Vitamin B12 and Folate 08/14/23 F41.1 - Generalized anxiety disorder, I10 - Essential (primary) hypertension, K58.0 - Irritable bowel syndrome with diarrhea, Z00.01 - Encounter for general adult medical examination with abnormal findings US thyroid 08/14/23 Z86.39 - Personal history of other endocrine, nutritional and metabolic disease Medications: Refilled amlodipine 5 mg PO DAILY 90 tabs 3RF I10 - Essential (primary) hypertension clonidine HCl 0.2 mg PO BEDTIME 90 tabs 3RF I10 - Essential (primary) hypertension Coding Level of Care Code Est Pt Prev Care 40-64y(27983) Diagnoses Annual visit for general adult medical examination with abnormal findings Z00.01 Generalized anxiety disorder F41.1 Irritable bowel syndrome with diarrhea K58.0 Essential hypertension I10 History of thyroid nodule Z86.39 Additional Codes KALI-7 Assessment Billing - KALI-7 Assessment Tool: KALI-7 Assessment 04119 ([id number])
[2023-08-14 08:06] VITALS: BP 136/80; PULSE 75; O2SAT 99; BMI 27.6
== END 2023-08-14 09:49 | disposition home or self-care (01) ==
PROVIDERS: Visit Provider Internal Medicine
DX: Z23 Encounter for immunization (principal)
CPT/HCPCS: 90471; 90686; 99396

== ENCOUNTER 2023-09-12 08:20 | Outpatient (REF) | payer OTHER, SELFPAY ==
--- NOTE | ~2023-09-12 | US_ITS ---
EXAMINATION: US THYROID CLINICAL INFORMATION: Personal history of other endocrine, nutritional and metabolic disease. COMPARISON: None available. TECHNIQUE: Linear transducer grayscale and color Doppler examination with attention to the region of the thyroid. FINDINGS: SIZE: Measurements of the thyroid lobes and nodules are given in sagittal, anteroposterior and transverse dimensions respectively. Right Thyroid Lobe: 6.2 x 1.7 x 2.1 cm, volume 11.5 mL. Parenchyma: The gland echotexture is heterogeneous. Thyroid vascularity is increased. Left Thyroid Lobe: 5.2 x 1.8 x 1.9 cm, volume 9.1 mL. Parenchyma: The gland echotexture is heterogeneous. Thyroid vascularity is increased. Isthmus: 0.39 cm in maximum AP dimension. Estimated total number of nodules greater than or equal to 1 cm: 3. Processing Engineer nodules are described as follows: 1. Location: Right inferior. Size: 1.6 x 0.82 x 1.4 cm, volume 0.95 mL. Nodule characteristics: Composition: Cannot be determined (2). Echogenicity: Very hypoechoic (3). Shape: Not taller than wide (0). Margins: Smooth (0). Echogenic Foci: Comet-tail artifacts (0). Punctate echogenic foci (3). ACR TI-RADS total points: 8 ACR TI-RADS category: 5 2. Location: Right inferior. Size: 2.0 x 1.0 x 1.5 cm, volume 1.5 mL. Nodule characteristics: Composition: Mixed cystic and solid (1). Echogenicity: Hypoechoic (2). Shape: Not taller than wide (0). Margins: Smooth (0). Echogenic Foci: None (0). ACR TI-RADS total points: 3 ACR TI-RADS category: 1 3. Location: Right mid. Size: 1.3 x 0.61 x 1.2 cm, volume 0.48 mL. Nodule characteristics: Composition: Cannot be determined (2). Echogenicity: Very hypoechoic (3). Shape: Not taller than wide (0). Margins: Smooth (0). Echogenic Foci: Punctate echogenic foci (3). ACR TI-RADS total points: 8 ACR TI-RADS category: 5 4. Location: Left inferior. Size: 0.62 x 0.33 x 0.50 cm, volume 0.05 mL. Nodule characteristics: Composition: Spongiform (0). Echogenicity: Anechoic (0). Shape: Not taller than wide (0). Margins: Smooth (0). Echogenic Foci: None (0). ACR TI-RADS total points: 0 ACR TI-RADS category: 1 NODES: No lymphadenopathy is seen in the tissue surrounding the thyroid gland. US/US thyroid IMPRESSION: 1.6 cm right TR 5 nodule and 1.3 cm right TR 5 thyroid nodules meet criteria for biopsy. Fine-needle aspiration recommended. This study was presented 09/15/2023 at 1:25 PM for interpretation. PSA staff will provide results to referring provider at this time. ACR TI-RADS RECOMMENDATION REFERENCE: Ultrasound-guided fine-needle aspiration, followup ultrasound, no further follow up. * TR1 (0 point) and TR2 (2 points): No FNA or follow up. * TR3 (3 points): FNA if more than or equal to 2.5 cm in maximum dimension, followup ultrasound in 1, 3 and 5 years if 1.5 to 2.4 cm in maximum dimension. * TR4 (4-6 points): FNA if more than or equal to 1.5 cm in maximum dimension, followup ultrasound in 1, 2, 3 and 5 years if 1 to 1.4 cm in maximum dimension. * TR5 (more than or equal to 7 points): FNA if more than or equal to 1 cm in maximum dimension, followup ultrasound every year for 5 years if 0.5 to 0.9 cm in maximum dimension. * TR3, TR4 or TR5 nodules that are below the size threshold for followup receive no follow up.
== END 2023-09-12 08:21 | disposition home or self-care (01) ==
LOC: HO.HMGCX 08:20
PROVIDERS: PCP Internal Medicine; Visit Provider Internal Medicine
DX: Z86.39 Personal history of other endocrine, nutritional and metabolic disease (principal)
CPT/HCPCS: 76536

== ENCOUNTER 2023-09-13 07:05 | Outpatient (REF) | payer OTHER, SELFPAY ==
[2023-09-13 11:07] LABS: MANUAL DIFF FLAG NO
[2023-09-13 11:10] LABS: Basophils Absolute Auto 0.1 X10*3/uL (0.0-0.2); Basophils Percent Auto 0.9 % (0-2); Eosinophils Absolute Auto 0.1 X10*3/uL (0.0-0.4); Hematocrit 41.1 % (37.0-47.0); Hemoglobin 13.9 g/dl (12.0-16.0); Imm Gran Abs Auto 0.01 X10*3/uL (0.00-0.03); Imm Gran Pct Auto 0.2 % (0.0-0.4); Lymphocytes Absolute Auto 1.3 X10*3/uL (1.2-4.9); Lymphocytes Percent Auto 22.7 % (20-40); Mean Corpuscular HGB Conc 33.8 g/dl (31.0-35.0); Mean Corpuscular Hemoglobin 29.7 pg (27.0-33.0); Mean Corpuscular Volume 87.8 fL (80.0-98.0); Mean Platelet Volume 10.6 fL (9.4-12.3); Monocytes Absolute Auto 0.5 X10*3/uL (0.1-1.2); Monocytes Percent Auto 7.8 % (2-11); Neutrophils Percent Auto 67.4 % (45-73); Platelet Count 272 X10*3/uL (160-400); Red Blood Count 4.68 X10*6/uL (4.20-5.50); Red Cell Distribution Width 12.4 % (11.0-16.0); White Blood Count 5.9 X10*3/uL (4.8-10.8)
[2023-09-13 11:39] LABS: Anion Gap 9 (12-20); Blood Urea Nitrogen 17 mg/dL (9-16); Calcium 9.1 mg/dL (8.4-10.2); Carbon Dioxide 28 mmol/L (22-29); Chloride 106 mmol/L (96-108); Cholesterol 175 mg/dL (<200); Estimated Glomerular Filt Rate > 60; Glucose Fasting 97 mg/dL (60-99); HDL Cholesterol 54 mg/dL (>40); LDL Cholesterol Calculated 106 mg/dL (<100); Sodium 139 mmol/L (135-145); Triglycerides 75 mg/dL (<150)
[2023-09-13 11:56] LABS: Folate 12.8 ng/mL (> or = 4.0); Vitamin B12 952 pg/mL (200-900)
[2023-09-13 12:00] LABS: TSH reflex Free T4 0.42 uIU/mL (0.32-4.0); Vitamin D 25-OH Total 62.8 ng/mL (>30)
== END 2023-09-13 07:06 | disposition home or self-care (01) ==
LOC: HO.HMGCLDS 07:05
PROVIDERS: PCP Internal Medicine; Visit Provider Internal Medicine
DX: Z00.01 Encounter for general adult medical examination with abnormal findings (principal); F41.1 Generalized anxiety disorder; K58.0 Irritable bowel syndrome with diarrhea; I10 Essential (primary) hypertension; Z86.39 Personal history of other endocrine, nutritional and metabolic disease
CPT/HCPCS: 36415; 80048; 80061; 82306; 82607; 82746; 84443; 85025

== ENCOUNTER 2023-09-30 13:02 | Outpatient (AMB) | payer OTHER, SELFPAY ==
--- NOTE | 2023-09-30 12:25 | A.OFFPC_ITS ---
Intake Visit Reasons: lab&US results [facility] [phone] Intake Note: pt is following up Lab and US results Allergies Aluminum Allergy (Unknown, Verified 09/30/23 14:27) tingling, rash, rash nickel [NICKEL] Allergy (Unknown, Verified 09/30/23 14:27) RASH Sulfa (Sulfonamide Antibiotics) [SULFA (SULFONAMIDE ANTIBIOTICS)] Allergy (Unknown, Verified 09/30/23 14:27) DIFF BREATHING, rash, oral swelling, SOB Medication List - Last Reconciled 09/30/23 by Anne Grey MD amlodipine 5 mg PO DAILY aspirin (Adult Low Dose Aspirin) 81 mg PO DAILY cholecalciferol (vitamin D3) 50 mcg PO DAILY clonidine HCl 0.2 mg PO BEDTIME cyanocobalamin (vitamin B-12) (Vitamin B-12) 50 mcg PO DAILY fluoxetine 40 mg PO DAILY lorazepam 1 mg PO DAILY multivitamin (Daily Multi-Vitamin tablet) 1 tab PO DAILY Tobacco use date assessed: 09/30/23 Dental Screening Dental Screen Date: 09/30/23 Did you have a dental visit in the last 12 months?: Yes Did you have a dental problem in the last 6 months where you did not have access to dental care?: No Was dental information given to patient?: Patient has dentist HPI lab&US results [facility] [phone] HPI Details 48-year-old lady here today for follow-u p on results of her recent fasting labs and thyroid ultrasound. She has history of thyroid nodule, was biopsied in her 20s which came back with benign findings. Has not had any follow-up since then. She however has been complaining of having frequent diarrhea and has been losing weight this past year. She was weighing 191 lb in October and now weighs 176 lb without changing her diet or exercise regimen. She also reports sometimes feeling something in the back of her throat when she swallows. However she denies any chest pain, no palpitations, no tremors, no increased fatigue or mood swings. Her latest labs showed normal lipids, electrolytes, glucose, vitamin-D and TSH level. Thyroid ultrasound however showed presence of 3 nodules more than 1 cm each, 2 of with meets criteria for fine-needle aspiration biopsy. [facility] Medical History (Updated 09/30/23 @ 14:38 by Anne Grey MD) Multinodular thyroid History of thyroid nodule Essential hypertension Lymphopenia Generalized anxiety disorder BERTRAND (nonalcoholic steatohepatitis) GERD (gastroesophageal reflux disease) Irritable bowel syndrome with diarrhea Surgical History History of esophagogastroduodenoscopy (EGD) H/O colonoscopy Family History Mother Rheumatoid arthritis Social History Household Members: Children Housing: Apartment Alcohol intake: current Alcohol intake frequency: does not drink Patient Tobacco Use Status: Former Tobacco user e-Cigarette/Vaping Use: Never Used Current occupational status: employed Cognitive needs: No Hearing needs: No Vision needs: No Questionnaire Thrive Questionnaire Date Thrive assessed: 08/14/23 KALI-7 AMB Questionnaire KALI-7 Date KALI - 7 assessed: 08/14/23 Source: Developed by Drs. Luc Ruiz, Penny Lord, Arnoldo Fink and colleagues, with an educational lisa from [employer]. Review of Systems Const Denies fever(s), Denies night sweats and Denies poor appetite Eyes Reports no additional complaints ENT Denies dental pain, Denies dysphagia, Denies hearing loss, Denies mouth pain, Denies odynophagia, Denies throat swelling and Denies tongue swelling Card Reports no additional complaints Resp Reports no additional complaints GI Denies abdominal pain, Denies melena, Reports bloating, Denies hematochezia, Denies constipation, Denies GI cramping, Denies dysphagia, Denies excessive flatus, Denies early satiety, Denies heartburn, Denies nausea and Denies odynophagia Reports no additional complaints Musc Reports no additional complaints Skin/Breast Denies pruritus, Denies lesions, Denies rash and Denies jaundice Neuro Reports no additional complaints Psych Reports no additional complaints Endo Reports no additional complaints Jd/Lymph Reports no additional complaints Aller/Immun Denies throat swelling and Denies tongue swelling Physical exam (Primary Care) Tobacco/Smoking Status: Tobacco use Status Tobacco use date assessed 09/30/23 09/30/23 12:26 Patient Tobacco Use Status Former Tobacco user 09/30/23 12:26 e-Cigarette/Vaping Use Never Used 09/30/23 12:26 Thrive Assessment: Date of Thrive Assessment Date Thrive assessed 08/14/23 09/30/23 12:26 Telehealth Telehealth Location of provider rendering services: practice address Location of patient: address on file Patient Identification confirmed using: Name, : Yes Telehealth method: video Patient verbally consented to treatment: Yes Patient verbally consented to billing insurance company: Yes Patient informed of any privacy concerns related to visit: Yes Minutes spent on Phone/Video with Pt.: 15 Results Reviewed Results Reviewed: Name: Angelika Deleon Age/Sex: 48/F : 1975 Unit#: [id number] Attend Dr: Anne Grey MD Re09/13/23 Status: DEP REF Location: [facility] Disch: SPEC : [id number] RICKY: 09/13/23 STATUS: COMP REQ : [id number] RECD: 09/13/[address]: Anne Grey MD COMP: 09/13/23 ENTERED: 09/13/[address]: ORDERED: CBC Auto Diff Test Result Flag Reference Site WBC 5.9 4.8-10.8 X10*3/uL RBC 4.68 4.20-5.50 X10*6/uL HGB 13.9 12.0-16.0 g/dl HCT 41.1 37.0-47.0 % MCV 87.8 80.0-98.0 fL MCH 29.7 27.0-33.0 pg MCHC 33.8 31.0-35.0 g/dl RDW 12.4 11.0-16.0 % PLT 272 160-400 X10*3/uL MPV 10.6 9.4-12.3 fL Neut Pct Auto 67.4 45-73 % ImGran Pct Auto 0.2 0.0-0.4 % Lymp Pct Auto 22.7 20-40 % [place] Pct Auto 7.8 2-11 % Eos Pct Auto 1.0 0-4 % Baso Pct Auto 0.9 0-2 % NRBC Pct Auto 0.0 0.0-0.2 /100WBC ANC Neut Abs # 4.0 2.0-8.3 x10*3/uL ImGran Abs Auto 0.01 0.00-0.03 X10*3/uL Lymph Abs Auto 1.3 1.2-4.9 X10*3/uL [place] Abs Auto 0.5 0.1-1.2 X10*3/uL Eos Abs Auto 0.1 0.0-0.4 X10*3/uL Baso Abs Auto 0.1 0.0-0.2 X10*3/uL NRBC Abs Auto 0.000 0.0-0.012 X10*3/uL thyroid US showed 1.6 cm right TR 5 nodule and 1.3 cm right TR 5 thyroid nodules meet criteria for biopsy. Fine-needle aspiration recommended. ORDERED: Met Prof Fast, Lipid Panel, Vitamin D 25-OH, TSH Rflx Test Result Flag Reference Site Sodium 139 135-145 mmol/L Potassium 4.0 3.3-5.1 mmol/L CL 106 96-108 mmol/L CO2 28 22-29 mmol/L Gap 9 L 12-20 BUN 17 H 9-16 mg/dL Creat 0.87 0.5-1.4 mg/dL EGFR > 60 NOTE: For -Sudanese individuals, multiply the result by 1.210. Chronic Kidney Disease: Estimated GFR < 60 mL/min/1.73m2 Severe Kidney Disease: Estimated GFR < 15 mL/min/1.73m2 FBS 97 60-99 mg/dL CA 9.1 # 8.4-10.2 mg/dL Triglyceride 75 <150 mg/dL Desirable Triglyceride: less than 150 mg/dL Borderline High Triglyceride 150-199 mg/dL High Triglyceride: 200-499 mg/dL Very High Triglyceride: greater than or equal to 5OO mg/dL Cholesterol 175 <200 mg/dL Desirable Cholesterol: less than 200 mg/dL Borderline High Cholesterol: 200-239 mg/dL High Cholesterol: greater than 239 mg/dL LDL Calculated 106 H <100 mg/dL Desirable LDL: less than 100 mg/dL Near Optimal/Above Optimal LDL: 110-129 mg/dL Borderline High LDL: 130-159 mg/dL High LDL: 160-189 mg/dL Very High LDL: greater than or equal to 190 mg/dL HDL 54 >40 mg/dL Desirable HDL: greater than 40 mg/dL Note: This HDL assay may give artificially low results in patients with liver disease. Vit D 25-OH Tot 62.8 >30 ng/mL Health Based Reference Values* < 20 ng/mL Deficient 20-30 ng/mL Insufficient > 30 ng/mL Sufficient *Valeria DEMARCO. N Engl J Med. 2007;357:266-280 Care must be taken in interpreting Vitamin D results from different laboratories and methodologies. Published data demonstrated that results from patients undergoing hemodialysis may show a negative bias when tested with various automated 25-OH vitamin D assays when compared to LC-MS/MS. When testing samples from patients whose predominant form of Vitamin D is Vitamin D2, such as patients receiving Vitamin D2 supplementation, results that are subtherapeutic should be confirmed with another method such as LC-MS/MS. TSH 0.42 0.32-4.0 uIU/mL Assessment and Plan Assessment & Plan (1) Multinodular thyroid: Code(s): E04.2 - Nontoxic multinodular goiter Plan: Recent TSH are within normal limits, rest of her labs are within normal limits as well. Thyroid ultrasound however showed presence of 3 nodules greater than 1 cm each,2 of which meets criteria for fine-needle biopsy. Referred to endocrine clinic for further evaluation and management. Orders: Referrals Endocrinology Referral E04.2 - Nontoxic multinodular goiter Coding Level of Care Code Tele Est Pt Level 3 (12062) Diagnoses Multinodular thyroid E04.2
== END 2023-09-30 16:58 | disposition home or self-care (01) ==
LOC: HO.HMGC 13:02
PROVIDERS: PCP Internal Medicine; Visit Provider Internal Medicine
DX: E04.2 Nontoxic multinodular goiter (principal)
CPT/HCPCS: 99213

== ENCOUNTER 2024-02-24 14:51 | Outpatient (AMB) | payer OTHER, SELFPAY ==
[2024-02-24 15:01] VITALS: BP 164/82; PULSE 80; BMI 28.1
--- NOTE | 2024-02-24 15:01 | A.OFFVIS_ITS ---
Vital Signs 02/24/24 15:01 Height 5 ft 7 in Weight 179 lb 7.3 oz BMI 28.1 BP 164/82 H Blood Pressure Location Lt brachial Position Sitting Pulse 80 Intake Visit Reasons: pt req follow up with provider Intake Note: Patient in office visit today in follow up of IBS with diarrhea. CC: Patient reports diarrhea and would like to discuss medications for it. Denies any new GI symptoms. Marshmallow Maker Required: No Accompanied by: Self / Same As Patient Allergies Aluminum Allergy (Unknown, Verified 02/24/24 15:03) tingling, rash, rash nickel [NICKEL] Allergy (Unknown, Verified 02/24/24 15:03) RASH Sulfa (Sulfonamide Antibiotics) [SULFA (SULFONAMIDE ANTIBIOTICS)] Allergy (Unknown, Verified 02/24/24 15:03) DIFF BREATHING, rash, oral swelling, SOB HPI HPI pt req follow up with provider: Details: Assessment & Plan (1) Irritable bowel syndrome with diarrhea: Code(s): K58.0 - Irritable bowel syndrome with diarrhea Plan: She still has not tried the creon. She only has success with her stooling when she takes her wild oregano or an antimicrobial. She still feels that the e coli infection is still in her. She has lost weight, she has been running more and this may be why. She is also taking Milk Thistle. She plans to continue this. She is agreeable to having repeat labs and an US. She will also be seeing her PCP soon and will require labs for this as well. She asks if she can try retreating with Xifaxan and I think this is reasonable given that has helped with her gas bloating and diarrhea in the past. after US (2) Small intestinal bacterial overgrowth: Code(s): K63.89 - Other specified diseases of intestine (3) BERTRAND (nonalcoholic steatohepatitis): Comment: 2018 AST/ALT 26/51 with the remainder normal, baseline alpha fetoprotein 3.6, ferritin , 02/2018 hepatitis a B and C negative, JOSEPH 2017 negative She says she is insulin resistant was on metformin when . 10/11/1901/05/23 07:5509:25 Anti-Mitochondrial Ab NEGATIVE Anti-Smooth Muscle Ab <20 HIV 1&2 Antigen & Ab negative * CURRENT LABS 10/31/2300/05/23 09:2509:25 Total Bilirubin 0.5 Direct Bilirubin 0.2 AST 56 H ALT 96 H Alkaline Phosphatase 78 Alpha Fetoprotein 4.0 ULTRASOUND OF THE ABDOMEN 11/05/22 IMPRESSION: Findings consistent with diffuse hepatic steatosis. ? Previously noted gallbladder wall polyps not shown. Code(s): K75.81 - Nonalcoholic steatohepatitis (BERTRAND) Orders: Orders Liver Panel Today K75.81 - Nonalcoholic steatohepatitis (BERTRAND) Alpha Fetoprotein Today K75.81 - Nonalcoholic steatohepatitis (BERTRAND) US abdomen complete Today K75.81 - Nonalcoholic steatohepatitis (BERTRAND) Medications: New rifaximin (Xifaxan) 550 mg PO BID 10 days 20 tabs 0RF K63.89 - Other specified diseases of intestine LABS: Laboratory Tests 07/29/23 09/13/23 08:32 07:10 Total Bilirubin 0.5 Direct Bilirubin 0.2 AST 17 ALT 21 Alkaline Phosphatase 63 Alpha Fetoprotein 3.2 TSH 0.42 ULTRASOUND OF THE ABDOMEN 07/30/23 FINDINGS: PANCREAS: Normal. ABDOMINAL AORTA: The proximal, mid, and distal segments are normal in caliber. INFERIOR VENA CAVA: Visualized portions are normal. LIVER: The liver is normal in size. The liver contour is normal. There is diffuse increased liver parenchymal echogenicity, consistent with hepatic steatosis. No focal hepatic lesion. There is no intrahepatic biliary duct dilatation seen. GALLBLADDER: Gallbladder appears normal. COMMON BILE DUCT: Normal in caliber measuring 0.9 cm in diameter. RIGHT KIDNEY: Normal. No hydronephrosis. No renal calculi or focal parenchymal lesions. The kidney measures 10.5 cm in maximum dimension. LEFT KIDNEY: Normal. No hydronephrosis. No renal calculi or focal parenchymal lesions. The kidney measures 9.7 cm in maximum dimension. SPLEEN: Normal. The spleen measures 9.6 cm in maximum dimension. FREE FLUID: None. US/US abdomen complete IMPRESSION: Hepatic steatosis. Otherwise normal abdominal ultrasound. TODAYS VISIT Her gas that is malodorous continues, she has diarrhea with loose greasy stools every am. She only seems to respond to homeopathic things, (wild oregano and garlic) but has been reading and would like a trial of flagyl. She has not yet tried creon. The garlic upsets her stomach. She continues on a probiotic. We review the labs and US and the labs are normal, US ? 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 ROV 4 weeks. [facility] Medical History Multinodular thyroid History of thyroid nodule Essential hypertension Lymphopenia Generalized anxiety disorder BERTRAND (nonalcoholic steatohepatitis) GERD (gastroesophageal reflux disease) Irritable bowel syndrome with diarrhea Surgical History History of esophagogastroduodenoscopy (EGD) H/O colonoscopy Family History Mother Rheumatoid arthritis Social History Household Members: Children Housing: Apartment Alcohol intake: current Alcohol intake frequency: does not drink Patient Tobacco Use Status: Former Tobacco user e-Cigarette/Vaping Use: Never Used Current occupational status: employed Cognitive needs: No Hearing needs: No Vision needs: No Review of Systems Const Denies fatigue, Denies fever(s), Denies night sweats, Denies poor appetite and Denies weight loss ENT Reports Normal hearing present, Denies dental pain, Denies dysphagia, Denies hearing loss, Denies mouth pain, Denies odynophagia, Denies throat swelling, Denies tongue swelling and Reports other (Dentition adequate) Card Reports no additional complaints Resp Reports no additional complaints GI Details: Denies abdominal pain, Denies melena, Reports bloating, Denies hematochezia, Denies constipation, Denies GI cramping, Denies dysphagia, Denies excessive flatus, Denies early satiety, Denies heartburn, Reports diarrhea, Denies nausea, Denies odynophagia, Denies vomiting and Denies hematemesis Skin/Breast Denies pruritus, Denies lesions, Denies rash and Denies jaundice Neuro Reports Normal hearing present and Denies Abnormal speech present Endo Denies fatigue Aller/Immun Denies throat swelling and Denies tongue swelling Physical Exam Vital Signs: Last Vital Signs Pulse 80 02/24/24 15:01 BP 164/82 H 02/24/24 15:01 BMI result Body Mass Index 28.1 Const General: cooperative, no acute distress, well developed and well groomed Nutritional Appearance: average body habitus and well nourished Orientation/consciousness: oriented to person, oriented to place and oriented to time Limitations: No language barrier HEENT Head: Yes normocephalic and Yes atraumatic Eyes General: appearance normal, both eyes and all related structures Pupils: Equal, round and reactive pupils present Neck Neck: Yes normal visual inspection and Yes no lymphadenopathy Thyroid: Thyroid normal Resp Effort & Inspection: normal respiratory effort and able to speak in complete sentences Auscultation: clear to auscultation bilaterally Cardio Rate: regular rate Rhythm: regular rhythm Heart sounds: Normal, physiologic split S2 sound present Peripheral pulses: radial pulses present and posterior tibial pulses present GI Inspection: No distended and No Abdominal panniculus present Palpation (GI): Soft to palpation, nontender, no guarding, not rigid and No hepatosplenomegaly present Percussion: Yes normal to percussion Auscultation: normal bowel sounds Rectal Exam - Female: deferred Skin General skin exam: no rashes or lesions noted, turgor normal, skin not dry, no jaundice, No spider nevi and no striae Rashes: no rashes Nails: normal Neuro General: oriented to person, oriented to place and oriented to time Cranial nerves: Yes Equal, round and reactive pupils present and Yes Normal hearing present Speech: No Abnormal speech present Extrem General: Yes normal to inspection, No clubbing, No cyanosis and No edema Psych Appearance: grossly normal and well kempt Mental Status: mental status grossly normal Speech and movement: Normal speech and movement present Affect: normal affect Attitude: cooperative Thought process: Normal thought process present and not confabulating Thought content: Normal thought content present Insight: Fair insight present (Psych) Judgement: Fair judgement present (Psych) Results Reviewed Results Reviewed: Laboratory Tests 07/29/23 09/13/23 08:32 07:10 Total Bilirubin 0.5 Direct Bilirubin 0.2 AST 17 ALT 21 Alkaline Phosphatase 63 Alpha Fetoprotein 3.2 TSH 0.42 ULTRASOUND OF THE ABDOMEN 07/30/23 FINDINGS: PANCREAS: Normal. ABDOMINAL AORTA: The proximal, mid, and distal segments are normal in caliber. INFERIOR VENA CAVA: Visualized portions are normal. LIVER: The liver is normal in size. The liver contour is normal. There is diffuse increased liver parenchymal echogenicity, consistent with hepatic steatosis. No focal hepatic lesion. There is no intrahepatic biliary duct dilatation seen. GALLBLADDER: Gallbladder appears normal. COMMON BILE DUCT: Normal in caliber measuring 0.9 cm in diameter. RIGHT KIDNEY: Normal. No hydronephrosis. No renal calculi or focal parenchymal lesions. The kidney measures 10.5 cm in maximum dimension. LEFT KIDNEY: Normal. No hydronephrosis. No renal calculi or focal parenchymal lesions. The kidney measures 9.7 cm in maximum dimension. SPLEEN: Normal. The spleen measures 9.6 cm in maximum dimension. FREE FLUID: None. US/US abdomen complete IMPRESSION: Hepatic steatosis. Otherwise normal abdominal ultrasound. Assessment & Plan Assessment & Plan (1) BERTRAND (nonalcoholic steatohepatitis): Comment: 2018 AST/ALT 26/51 with the remainder normal, baseline alpha fetoprotein 3.6, ferritin 29, 02/2018 hepatitis a B and C negative, JOSEPH 2018 negative She says she is insulin resistant was on metformin when . 10/11/1901/05/23 07:5509:25 Anti-Mitochondrial Ab NEGATIVE Anti-Smooth Muscle Ab <20 HIV 1&2 Antigen & Ab negative * CURRENT LABS 07/29/2311/18/23 08:3207:10 Total Bilirubin 0.5 Direct Bilirubin 0.2 AST 17 ALT 21 Alkaline Phosphatase 63 Alpha Fetoprotein 3.2 TSH 0.42 ULTRASOUND OF THE ABDOMEN 07/30/23 FINDINGS: PANCREAS: Normal. ABDOMINAL AORTA: The proximal, mid, and distal segments are normal in caliber. INFERIOR VENA CAVA: Visualized portions are normal. LIVER: The liver is normal in size. The liver contour is normal. There is diffuse increased liver parenchymal echogenicity, consistent with hepatic steatosis. No focal hepatic lesion. There is no intrahepatic biliary duct dilatation seen. GALLBLADDER: Gallbladder appears normal. COMMON BILE DUCT: Normal in caliber measuring 0.9 cm in diameter. RIGHT KIDNEY: Normal. No hydronephrosis. No renal calculi or focal parenchymal lesions. The kidney measures 10.5 cm in maximum dimension. LEFT KIDNEY: Normal. No hydronephrosis. No renal calculi or focal parenchymal lesions. The kidney measures 9.7 cm in maximum dimension. SPLEEN: Normal. The spleen measures 9.6 cm in maximum dimension. FREE FLUID: None. US/US abdomen complete IMPRESSION: Hepatic steatosis. Otherwise normal abdominal ultrasound. Code(s): K75.81 - Nonalcoholic steatohepatitis (BERTRAND) Category: Medical (2) Small intestinal bacterial overgrowth: Code(s): K63.89 - Other specified diseases of intestine Category: Medical (3) Irritable bowel syndrome with diarrhea: Code(s): K58.0 - Irritable bowel syndrome with diarrhea Category: Medical Plan Her gas that is malodorous continues, she has diarrhea with loose greasy stools every am. She only seems to respond to homeopathic things, (wild oregano and garlic) but has been reading and would like a trial of flagyl. She has not yet tried creon. The garlic upsets her stomach. She continues on a probiotic. We review the labs and US and the labs are normal, US ? 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 ROV 4 weeks. Orders: Orders US abdomen complete Today K75.81 - Nonalcoholic steatohepatitis (BERTRAND) Comprehensive Met. Panel Today K75.81 - Nonalcoholic steatohepatitis (BERTRAND) Medications: New metronidazole 500 mg PO TID 30 tabs 0RF 10 days Coding Level of Care Code Est Pt Level 3 (55374) Diagnoses BERTRAND (nonalcoholic steatohepatitis) K75.81 Small intestinal bacterial overgrowth K63.89 Irritable bowel syndrome with diarrhea K58.0
== END 2024-02-24 15:29 | disposition home or self-care (01) ==
PROVIDERS: PCP Internal Medicine; Visit Provider Nurse Practitioner
DX: K75.81 Nonalcoholic steatohepatitis (NASH) (principal); K63.89 Other specified diseases of intestine; K58.0 Irritable bowel syndrome with diarrhea
CPT/HCPCS: 99213

== ENCOUNTER → 2024-02-24 14:51 | Outpatient (BNVA) | payer OTHER, SELFPAY | PROVIDERS: PCP Internal Medicine; Visit Provider Nurse Practitioner | DX: K75.81 Nonalcoholic steatohepatitis (NASH) (principal); K63.89 Other specified diseases of intestine; K58.0 Irritable bowel syndrome with diarrhea | CPT/HCPCS: 99212 ==

== ENCOUNTER 2024-04-14 08:24 | Outpatient (REF) | payer OTHER, SELFPAY ==
--- NOTE | ~2024-04-14 | US_ITS ---
EXAMINATION: US ABDOMEN COMPLETE CLINICAL INFORMATION: Nonalcoholic steatohepatitis. COMPARISON: Ultrasound abdomen complete 07/29/2023. Limited abdominal ultrasound 10/31/2022. CT abdomen and pelvis 03/05/2014. TECHNIQUE: Real-time imaging of the abdominal viscera. Limited visualization due to bowel gas. FINDINGS: PANCREAS: Limited visualization of pancreatic tail and head. Imaged portion of pancreatic body is unremarkable. ABDOMINAL AORTA: Limited visualization. INFERIOR VENA CAVA: Visualized portions are normal. LIVER: Increased hepatic parenchymal heterogeneity and echogenicity could be associated with hepatocellular disease/hepatic steatosis and substantially limits visualization. Correlation with liver function tests and clinical exam recommended to determine further management. GALLBLADDER: No gallbladder wall thickening. A 3 mm gallbladder polyp. COMMON BILE DUCT: Normal in caliber measuring 0.4 cm in diameter. RIGHT KIDNEY: Mild fullness right renal collecting system. No renal calculi. Limited visualization. The kidney measures 11.1 cm in maximum dimension. LEFT KIDNEY: A 5 mm calculus lower pole left kidney. No hydronephrosis. Limited visualization. The kidney measures 10.2 cm in maximum dimension. SPLEEN: Normal. The spleen measures 10.2 cm in maximum dimension. FREE FLUID: None. US/US abdomen complete IMPRESSION: 1. Increased hepatic parenchymal heterogeneity and echogenicity could be associated with hepatocellular disease/hepatic steatosis and substantially limits visualization. Correlation with liver function tests and clinical exam recommended to determine further management. 2. A 3 mm gallbladder polyp. 3. Mild fullness right renal collecting system. 4. A 5 mm calculus lower pole left kidney. No hydronephrosis.
== END 2024-04-14 08:25 | disposition home or self-care (01) ==
LOC: HO.HMGCX 08:24
PROVIDERS: PCP Internal Medicine; Visit Provider Nurse Practitioner
DX: K75.81 Nonalcoholic steatohepatitis (NASH) (principal)
CPT/HCPCS: 76700

== ENCOUNTER 2024-07-27 13:03 | Outpatient (AMB) | payer OTHER, SELFPAY ==
--- NOTE | 2024-07-27 13:06 | AM.OFFWIN_ITS ---
Intake Vital Signs 3 07/27/24 13:07 Height 5 ft 7 in Weight 179 lb 6 oz BMI 28.1 BP 122/88 Blood Pressure Location Lt brachial Position Sitting Pulse 99 Pulse Source Pulse Oximeter Temp 98.4 F Temp Source Temporal Artery Scan Pulse Oximetry (%) 99 Oxygen Delivery Method Room Air Intake Visit Reasons: EP Dog bite on the right hand Intake Note: Pt presents to the office today for c/o a dog bite on her right hand that happened about 1.5 weeks ago. Pt states it was her dog and the dog is up to date on rabies vaccine. Pt states it is painful. Patient Tobacco Use Status: Former Tobacco user Allergies Aluminum Allergy (Unknown, Verified 07/27/24 13:09) tingling, rash, rash nickel [NICKEL] Allergy (Unknown, Verified 07/27/24 13:09) RASH Sulfa (Sulfonamide Antibiotics) [SULFA (SULFONAMIDE ANTIBIOTICS)] Allergy (Unknown, Verified 07/27/24 13:09) DIFF BREATHING, rash, oral swelling, SOB Medication List - Last Reconciled 07/27/24 by Monster Hair MD amlodipine 5 mg PO DAILY aspirin (Adult Low Dose Aspirin) 81 mg PO DAILY cholecalciferol (vitamin D3) 50 mcg PO DAILY clonidine HCl 0.2 mg PO BEDTIME cyanocobalamin (vitamin B-12) (Vitamin B-12) 50 mcg PO DAILY fluoxetine 40 mg PO DAILY lorazepam 1 mg PO DAILY multivitamin (Daily Multi-Vitamin tablet) 1 tab PO DAILY HPI EP Dog bite on the right hand 2 HPI0 Details Patient is a 48-year-old female came in today to be evaluated for possible infection right hand Patient had a dog bite 2 weeks ago when she was trying to take the bone away from the dog Patient says that the dog is immunized and it is her dog She said that she was trying to soak the hand and it was getting better but got little fussy Now it hurts to bend the finger there is no more pus She declined to do x-ray, I have placed order, if she change her mind she can come in She also declined the tetanus vaccine I am sending antibiotic for the patient She is able to bend her finger but not fully because of pain I would strongly recommend that she have an x-ray done She has an appointment coming up with the primary care [facility] Medical History Multinodular thyroid History of thyroid nodule Essential hypertension Lymphopenia Generalized anxiety disorder BERTRAND (nonalcoholic steatohepatitis) GERD (gastroesophageal reflux disease) Irritable bowel syndrome with diarrhea Surgical History History of esophagogastroduodenoscopy (EGD) H/O colonoscopy Family History Mother Rheumatoid arthritis Social History Household Members: Children Housing: Apartment Alcohol intake: current Alcohol intake frequency: does not drink Patient Tobacco Use Status: Former Tobacco user e-Cigarette/Vaping Use: Never Used Current occupational status: employed Cognitive needs: No Hearing needs: No Vision needs: No Review of Systems Const All systems reviewed & are unremarkable except as noted in HPI and below Physical Exam Vital Signs: Last Vital Signs Temp 98.4 F 07/27/24 13:07 Pulse 99 07/27/24 13:07 BP 122/88 07/27/24 13:07 Pulse Ox 99 07/27/24 13:07 Oxygen Delivery Method Room Air 07/27/24 13:07 BMI result Body Mass Index 28.1 Const General: no acute distress Orientation/consciousness: patient oriented x3 Eyes General: appearance normal, both eyes and all related structures Resp Effort & Inspection: normal respiratory effort and able to speak in complete sentences Neuro General: patient oriented x3 Extrem Hand/finger images: 2 1. No pus, no erythema, slight swelling was noted plantar aspect Patient is able to flex the finger but not completely because of pain, sensory vascular intact Psych Mental Status: mental status grossly normal Assessment & Plan Assessment & Plan (1) Dog bite, hand: Code(s): S61.459A - Open bite of unspecified hand, initial encounter; W54.0XXA - Bitten by dog, initial encounter Qualifiers: Encounter type: initial encounter Laterality: right Qualified Code(s): S61.451A - Open bite of right hand, initial encounter; W54.0XXA - Bitten by dog, initial encounter Plan Patient is a 48-year-old female came in today to be evaluated for possible infection right hand Patient had a dog bite 2 weeks ago when she was trying to take the bone away from the dog Patient says that the dog is immunized and it is her dog She said that she was trying to soak the hand and it was getting better but got little fussy Now it hurts to bend the finger there is no more pus She declined to do x-ray, I have placed order, if she change her mind she can come in She also declined the tetanus vaccine I am sending antibiotic for the patient She is able to bend her finger but not fully because of pain I would strongly recommend that she have an x-ray done She has an appointment coming up with the primary care Orders: Orders 2 XR hand RT 2V Today S61.459A - Open bite of unspecified hand, initial encounter, W54.0XXA - Bitten by dog, initial encounter Medications: New 2 amoxicillin-pot clavulanate 875-125 mg 1 tab PO BID 20 tabs 0RF 10 days Coding Level of Care Code Est Pt Level 3 (15027) Diagnoses Dog bite of right hand, initial encounter S61.451A; W54.0XXA Encounter type: initial encounter Laterality: right
[2024-07-27 13:07] VITALS: BP 122/88; PULSE 99; TEMP 36.9; O2SAT 99; BMI 28.1
== END 2024-07-27 13:27 | disposition home or self-care (01) ==
PROVIDERS: PCP Internal Medicine; Visit Provider Internal Medicine
DX: S61.451A Open bite of right hand, initial encounter (principal); W54.0XXA Bitten by dog, initial encounter

== ENCOUNTER → 2024-07-27 13:03 | Outpatient (BNVA) | payer OTHER, SELFPAY | PROVIDERS: PCP Internal Medicine; Visit Provider Internal Medicine | DX: S61.451A Open bite of right hand, initial encounter (principal); W54.0XXA Bitten by dog, initial encounter | CPT/HCPCS: 99212 ==

== ENCOUNTER 2024-09-01 06:21 | Outpatient (REF) | payer OTHER, SELFPAY ==
[2024-09-01 10:49] LABS: Alanine Aminotransferase 36 U/L (0-31); Anion Gap 10 (12-20); Aspartate Amino Transferase 29 U/L (5-31); Blood Urea Nitrogen 17 mg/dL (9-16); Calcium 9.5 mg/dL (8.4-10.2); Carbon Dioxide 29 mmol/L (22-29); Chloride 103 mmol/L (96-108); Cholesterol 178 mg/dL (<200); Estimated Glomerular Filt Rate > 60; Glucose Fasting 108 mg/dL (60-99); HDL Cholesterol 58 mg/dL (>40); LDL Cholesterol Calculated 99 mg/dL (<100); Potassium 4.2 mmol/L (3.3-5.1); Sodium 138 mmol/L (135-145); Triglycerides 109 mg/dL (<150)
[2024-09-01 10:55] LABS: Thyroid Stimulating Hormone 1.04 uIU/mL (0.32-4.0); Vitamin D 25-OH Total 78.4 ng/mL (>30)
[2024-09-01 10:58] LABS: Vitamin B12 557 pg/mL (200-900)
== END 2024-09-01 06:22 | disposition home or self-care (01) ==
LOC: HO.HMGCLDS 06:21
PROVIDERS: PCP Internal Medicine; Visit Provider Internal Medicine
DX: E04.2 Nontoxic multinodular goiter (principal); I10 Essential (primary) hypertension; F41.1 Generalized anxiety disorder; Z13.220 Encounter for screening for lipoid disorders; R79.89 Other specified abnormal findings of blood chemistry
CPT/HCPCS: 36415; 80048; 80061; 82306; 82607; 82746; 84439; 84443; 84450; 84460

== ENCOUNTER 2024-09-03 13:06 | Outpatient (AMB) | payer OTHER, SELFPAY ==
[2024-09-03 13:08] VITALS: BP 138/86; PULSE 82; O2SAT 98; BMI 28.0
--- NOTE | 2024-09-03 13:08 | A.OFFPC_ITS ---
Vital Signs 09/03/24 13:08 Height 5 ft 7 in Weight 179 lb BMI 28.0 BP 138/86 Blood Pressure Location Rt brachial Position Sitting Pulse 82 Pulse Source Pulse Oximeter Pulse Oximetry (%) 98 Intake Visit Reasons: PE Intake Note: pt is here for PE Military Lawyer Required: No Accompanied by: Self / Same As Patient Allergies Aluminum Allergy (Unknown, Verified 09/03/24 13:08) tingling, rash, rash nickel [NICKEL] Allergy (Unknown, Verified 09/03/24 13:08) RASH Sulfa (Sulfonamide Antibiotics) [SULFA (SULFONAMIDE ANTIBIOTICS)] Allergy (Unknown, Verified 09/03/24 13:08) DIFF BREATHING, rash, oral swelling, SOB Medication List - Last Reconciled 09/03/24 by Olena Stern NP amlodipine 5 mg PO DAILY aspirin (Adult Low Dose Aspirin) 81 mg PO DAILY cholecalciferol (vitamin D3) 50 mcg PO DAILY clonidine HCl 0.2 mg PO BEDTIME cyanocobalamin (vitamin B-12) (Vitamin B-12) 50 mcg PO DAILY fluoxetine 40 mg PO DAILY lorazepam 1 mg PO DAILY multivitamin (Daily Multi-Vitamin tablet) 1 tab PO DAILY Tobacco use date assessed: 09/03/24 Dental Screening Dental Screen Date: 09/03/24 Did you have a dental visit in the last 12 months?: Yes Did you have a dental problem in the last 6 months where you did not have access to dental care?: No Was dental information given to patient?: Patient has dentist HPI HPI Comments History of Present Illness Details 49 y/o female patient who presents for P E. Pt of Dr. Grey. Pmhx significant for HTN, Anxiety and Multinodular thyroid. [facility]: PAP: 2021 normal. Needs to schedule appointment with new Safety Assistant Office ([facility] [place] does not take insurance). Mammo: Yearly Breast U/S and not Mammograms. [facility] Medical History (Updated 09/03/24 @ 13:46 by Olena Stern NP) Encounter for routine adult health examination without abnormal findings Multinodular thyroid History of thyroid nodule Essential hypertension Lymphopenia Generalized anxiety disorder BERTRAND (nonalcoholic steatohepatitis) GERD (gastroesophageal reflux disease) Irritable bowel syndrome with diarrhea Surgical History History of esophagogastroduodenoscopy (EGD) H/O colonoscopy Family History Mother Rheumatoid arthritis Social History Household Members: Children Housing: Apartment Alcohol intake: current Alcohol intake frequency: does not drink Patient Tobacco Use Status: Former Tobacco user e-Cigarette/Vaping Use: Never Used service: No Current occupational status: employed Cognitive needs: No Hearing needs: No Vision needs: No Questionnaire PHQ-9 Over the last 2 weeks, how often have you been bothered by any of the following problems? 1. Little interest or pleasure in doing things: not at all 2. Feeling down, depressed, or hopeless: not at all 3. Trouble falling or staying asleep, or sleeping too much: more than half the days 4. Feeling tired or having little energy: not at all 5. Poor appetite or overeating: not at all 6. Feeling bad about yourself - or that you are a failure or have let yourself or your family down: not at all 7. Trouble concentrating on things, such as reading the newspaper or watching television: not at all 8. Moving or speaking so slowly that other people could have noticed. Or the opposite - being so fidgety or restless that you have been moving around a lot more than usual: not at all 9. Thoughts that you would be better off or of hurting yourself in some way: not at all Total score: 2 Depression Screening Interpretation: Negative Depression Screening Done: Yes 24330 - PHQ-9 Billing: Yes Source: Developed by Drs. Luc Ruiz, Penny Lord, Arnoldo Fink and colleagues, with an educational lisa from [employer]. Thrive Questionnaire Date Thrive assessed: 09/03/24 I am a: Patient What is your living situation today?: I have a steady place to live Within the past 12 months, did the food you bought not last and you didn't have the money to get more?: Never true Within the past 12 months, did you worry whether your food would run out before you got money to buy more?: Never true Do you have trouble paying for medicines?: No Do you have trouble getting transportation to medical appointments?: No Do you have trouble paying your heating and electricity bill?: No Do you have trouble taking care of your child, family member or friend?: No Do you have trouble with day-to-day activities such as bathing, preparing meals, shopping, managing finances, etc.?: No Are you currently unemployed and looking for a job?: No Are you interested in more education?: No Please select the resources that you would like help with: None Currently or been in a relationship where the following occur: No concerns reported THRIVE Score: 0 AUDIT C Alcohol Use Questionnaire (AUDIT-C) 1. How often do you have a drink containing alcohol?: 2-3 times a week 2. How many drinks containing alcohol do you have on a typical day when you are drinking?: 1 or 2 3. How often do you have six or more drinks on one occasion?: Never Total Score: 3 Score Reviewed/Action Taken: Yes KALI-7 AMB Questionnaire KALI-7 Date KALI - 7 assessed: 09/03/24 Feeling nervous, anxious, or on edge: 0 = Not at all Not being able to stop or control worryin = Not at all Worrying too much about different things: 0 = Not at all Trouble relaxin = Not at all Being so restless that it is hard to sit still: 0 = Not at all Becoming easily annoyed or irritable: 0 = Not at all Feeling afraid as if something awful might happen: 0 = Not at all Total KALI-7 score (0-4 normal; 5-9 mild; 10-14 moderate; 15-21 severe): 0 Source: Developed by Drs. Luc Ruiz, Penny Lord, Arnoldo Fink and colleagues, with an educational lisa from [employer]. KALI-7 Assessment Billing KALI-7 Assessment Tool: KALI-7 Assessment 61876 Review of Systems Const All systems reviewed & are unremarkable except as noted in HPI and below Physical exam (Primary Care) Vital Signs: Last Vital Signs Pulse 82 09/03/24 13:08 BP 138/86 09/03/24 13:08 Pulse Ox 98 09/03/24 13:08 BMI result Body Mass Index 28.0 Tobacco/Smoking Status: Tobacco use Status Tobacco use date assessed 09/03/24 09/03/24 13:08 Patient Tobacco Use Status Former Tobacco user 09/03/24 13:08 e-Cigarette/Vaping Use Never Used 09/03/24 13:08 PHQ-9: PHQ-9 Score PHQ-9: Total score 2 09/03/24 13:25 Depression Screening Interpretation: Negative Thrive Assessment: Date of Thrive Assessment Date Thrive assessed 09/03/24 09/03/24 13:08 Currently or been in a relationship where the following occur: No concerns reported Const General: cooperative and no acute distress Nutritional Appearance: overweight Orientation/consciousness: patient oriented x3 HENMT Head: Yes normocephalic Ears: external ears normal and TM's normal bilaterally General nose exam: Normal external nose present Face and sinus: Yes sinuses nontender Mouth: moist mucous membranes Throat: Yes tonsils normal and Yes uvula midline Eyes Pupils: Equal, round and reactive pupils present EOM: EOMs intact bilaterally Direct Ophthalmoscopy: normal light reflex Neck Thyroid: other (Nodular thyroid) Resp Effort & Inspection: normal respiratory effort and able to speak in complete sentences Auscultation: clear to auscultation bilaterally, no crackles, no rales, no rhonchi and no wheezes Cardio Heart sounds: S1 normal heart sound present and S2 normal heart sound present GI Palpation (GI): Soft to palpation, not firm, nontender, no guarding, not rigid and No hepatosplenomegaly present Auscultation: normal bowel sounds General: Yes no CVA tenderness and Yes deferred Back/Spine/Pelvis Back: no CVA tenderness Skin General skin exam: no rashes or lesions noted Neuro General: patient oriented x3, gait normal and moves all extremities Cranial nerves: Yes Equal, round and reactive pupils present Gait exam (Neuro): Normal gait present Motor exam (neuro): 5/5 motor strength present throughout Psych Speech and movement: Normal speech and movement present Coding Level of Care Code Est Pt Prev Care 40-64y(91816) Diagnoses Encounter for routine adult health examination without abnormal findings Z00.00 Essential hypertension I10 Generalized anxiety disorder F41.1 Multinodular thyroid E04.2 Additional Codes KALI-7 Assessment Billing - KALI-7 Assessment Tool: KALI-7 Assessment 36328 ([id number]) PHQ-9 - 59345 - PHQ-9 Billing: Yes ([id number]) Time Spent (min) 30 Assessment & Plan Assessment & Plan (1) Encounter for routine adult health examination without abnormal findings: Code(s): Z00.00 - Encounter for general adult medical examination without abnormal findings Category: Medical Plan: Normal exam (2) Essential hypertension: Code(s): I10 - Essential (primary) hypertension Category: Medical Plan: Well controlled on current regiment. (3) Generalized anxiety disorder: Code(s): F41.1 - Generalized anxiety disorder Category: Medical Plan: Well controlled on current re (4) Multinodular thyroid: Code(s): E04.2 - Nontoxic multinodular goiter Category: Medical Plan: Managed by Endocrinology. Medications: Refilled amlodipine 5 mg PO DAILY 90 tabs 3RF I10 - Essential (primary) hypertension clonidine HCl 0.2 mg PO BEDTIME 90 tabs 0RF I10 - Essential (primary) hypertension Discontinued amoxicillin-pot clavulanate 875-125 mg Discontinued Reason: Patient Completed Course 1 tab PO BID 10 days 20 tabs 0RF
== END 2024-09-03 14:19 | disposition home or self-care (01) ==
PROVIDERS: PCP Internal Medicine; Visit Provider Nurse Practitioner Family
DX: Z00.00 Encounter for general adult medical examination without abnormal findings (principal); I10 Essential (primary) hypertension; F41.1 Generalized anxiety disorder; E04.2 Nontoxic multinodular goiter

== ENCOUNTER → 2024-09-03 13:06 | Outpatient (BNVA) | payer OTHER, SELFPAY | PROVIDERS: PCP Internal Medicine; Visit Provider Nurse Practitioner Family | DX: Z00.00 Encounter for general adult medical examination without abnormal findings (principal); I10 Essential (primary) hypertension; F41.1 Generalized anxiety disorder; E04.2 Nontoxic multinodular goiter | CPT/HCPCS: 96127; 99396 ==

== ENCOUNTER 2025-02-24 09:22 | Outpatient (AMB) | payer OTHER, SELFPAY ==
[2025-02-24 09:26] VITALS: BP 160/88; PULSE 110; O2SAT 98; BMI 28.2
--- NOTE | 2025-02-24 09:26 | A.OFFVIS_ITS ---
Vital Signs 02/24/25 09:26 Height 5 ft 7 in Weight 180 lb BMI 28.2 BP 160/88 H Blood Pressure Location Rt brachial Position Sitting Pulse 110 H Pulse Source Pulse Oximeter Pulse Oximetry (%) 98 Oxygen Delivery Method Room Air Intake Visit Reasons: Follow up IBS Intake Note: ESTABLISHED PATIENT for GERD + IBS mgmt. Chief Complaint; Chronic diarrhea + GI upset. Pt denies any additional sx or concerns at this time and reports that these concerns are related to chronic e.coli infection? Cpr Ambulance Driver Required: No Accompanied by: Self / Same As Patient Allergies Aluminum Allergy (Unknown, Verified 02/24/25 09:27) tingling, rash, rash nickel [NICKEL] Allergy (Unknown, Verified 02/24/25 09:27) RASH Sulfa (Sulfonamide Antibiotics) [SULFA (SULFONAMIDE ANTIBIOTICS)] Allergy (Unknown, Verified 02/24/25 09:27) DIFF BREATHING, rash, oral swelling, SOB HPI HPI Follow up IBS: Details: Assessment & Plan (1) BERTRAND (nonalcoholic steatohepatitis): Comment: 2018 AST/ALT 26/51 with the remainder normal, baseline alpha fetoprotein 3.6, ferritin 29, 02/2018 hepatitis a B and C negative, JOSEPH 2018 negative She says she is insulin resistant was on metformin when . 10/11/1901/05/23 07:5509:25 Anti-Mitochondrial Ab NEGATIVE Anti-Smooth Muscle Ab <20 HIV 1&2 Antigen & Ab negative * CURRENT LABS 07/29/2311/18/23 08:3207:10 Total Bilirubin 0.5 Direct Bilirubin 0.2 AST 17 ALT 21 Alkaline Phosphatase 63 Alpha Fetoprotein 3.2 TSH 0.42 ULTRASOUND OF THE ABDOMEN 07/30/23 FINDINGS: PANCREAS: Normal. ABDOMINAL AORTA: The proximal, mid, and distal segments are normal in caliber. INFERIOR VENA CAVA: Visualized portions are normal. LIVER: The liver is normal in size. The liver contour is normal. There is diffuse increased liver parenchymal echogenicity, consistent with hepatic steatosis. No focal hepatic lesion. There is no intrahepatic biliary duct dilatation seen. GALLBLADDER: Gallbladder appears normal. COMMON BILE DUCT: Normal in caliber measuring 0.9 cm in diameter. RIGHT KIDNEY: Normal. No hydronephrosis. No renal calculi or focal parenchymal lesions. The kidney measures 10.5 cm in maximum dimension. LEFT KIDNEY: Normal. No hydronephrosis. No renal calculi or focal parenchymal lesions. The kidney measures 9.7 cm in maximum dimension. SPLEEN: Normal. The spleen measures 9.6 cm in maximum dimension. FREE FLUID: None. US/US abdomen complete IMPRESSION: Hepatic steatosis. Otherwise normal abdominal ultrasound. Code(s): K75.81 - Nonalcoholic steatohepatitis (BERTRAND) Category: Medical (2) Small intestinal bacterial overgrowth: Code(s): K63.89 - Other specified diseases of intestine Category: Medical (3) Irritable bowel syndrome with diarrhea: Code(s): K58.0 - Irritable bowel syndrome with diarrhea Category: Medical Plan Her gas that is malodorous continues, she has diarrhea with loose greasy stools every am. She only seems to respond to homeopathic things, (wild oregano and garlic) but has been reading and would like a trial of flagyl. She has not yet tried creon. The garlic upsets her stomach. She continues on a probiotic. We review the labs and US and the labs are normal, US ? 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 ROV 4 weeks. Orders: Orders US abdomen complete Today K75.81 - Nonalcoholic steatohepatitis (BERTRAND) Comprehensive Met. Panel Today K75.81 - Nonalcoholic steatohepatitis (BERTRAND) Medications: New metronidazole 500 mg PO TID 30 tabs 0RF 10 days LABS: Not obtained ULTRASOUND OF THE ABDOMEN 05/04/2024 IMPRESSION: 1. Increased hepatic parenchymal heterogeneity and echogenicity could be associated with hepatocellular disease/hepatic steatosis and substantially limits visualization. Correlation with liver function tests and clinical exam recommended to determine further management. 2. A 3 mm gallbladder polyp. 3. Mild fullness right renal collecting system. 4. A 5 mm calculus lower pole left kidney. No hydronephrosis. TODAYS VISIT She had a respiratory infection and was tx'ed with augmentin 875 and her bowels improved to her normal for a few days than she had severe diarrhea. She then went on a 2 type lactobacillus with good results and she continues on this. Her bowels have been good but she had bloating and soreness of the abd. she perseverates that she still needs to get rid of the E coli 0157 infection that she had years ago, (in my records the micro dx showed this in [address] Zimmerman has been treating her for > 10 years) and she was reading about low dose macrobid for e coli and asks to go on that. This is an extremely anxious patient who has a distress to flustered medicine and is mostly doing research on holistic/marketing performance analyst epic sites. She does not understand that macrobid does not activate in the colon and concentrates in the urine and she was reading about this in reference to UTI's not intestinal infections. Her hands or trembling as she speaks and her blood pressure and her pulse her elevated further evidence of signs of her severe anxiety. I am really uncertain, actually unconvinced, that her problem is from an ongoing infectious agent and more from a functional bowel disorder from severe anxiety. However this is a difficult concept to impart to a patient who is overly focused on a microbe that affected her at least 6 years ago. She had a lot of stomach upset with flagyl (likely r/t her sulfa allergy). She is very focused on having another abx trial, so will do z pack and she does not want a long course. A great deal of time was spent educating her that you can not just try ?1 pill of an antibiotic? as she is suggesting because of the risk of bleeding antibiotic resistance and how that could very negatively impact her a long care health outcomes. She still very focused on the idea of Macrobid despite my efforts to educate her. This is a route I absolutely will not take as it would be only introducing potential risk when I know there is no therapeutic benefit. ROV 4 weeks. [facility] Medical History (Updated 02/24/25 @ 09:36 by HARVEY Mclean) History of thyroid nodule Encounter for routine adult health examination without abnormal findings Multinodular thyroid Essential hypertension Lymphopenia Generalized anxiety disorder BERTRAND (nonalcoholic steatohepatitis) GERD (gastroesophageal reflux disease) Irritable bowel syndrome with diarrhea Surgical History History of esophagogastroduodenoscopy (EGD) H/O colonoscopy Family History Mother Rheumatoid arthritis Social History Household Members: Children Housing: Apartment Alcohol intake: current Alcohol intake frequency: does not drink Patient Tobacco Use Status: Former Tobacco user e-Cigarette/Vaping Use: Never Used service: No Current occupational status: employed Cognitive needs: No Hearing needs: No Vision needs: No Review of Systems Const Denies fatigue, Denies fever(s), Denies night sweats, Denies poor appetite and Denies weight loss ENT Reports Normal hearing present, Denies dental pain, Denies dysphagia, Denies hearing loss, Denies mouth pain, Denies odynophagia, Denies throat swelling, Denies tongue swelling and Reports other (Dentition adequate) Card Reports no additional complaints Resp Reports no additional complaints GI Details: Reports abdominal pain, Denies melena, Reports bloating, Denies hematochezia, Denies constipation, Denies GI cramping, Denies dysphagia, Denies excessive flatus, Denies early satiety, Denies heartburn, Denies diarrhea, Denies nausea, Denies odynophagia, Denies vomiting and Denies hematemesis Skin/Breast Denies pruritus, Denies lesions, Denies rash and Denies jaundice Neuro Reports Normal hearing present and Denies Abnormal speech present Endo Denies fatigue Aller/Immun Denies throat swelling and Denies tongue swelling Physical Exam Vital Signs: Last Vital Signs Pulse 110 H 02/24/25 09:26 BP 160/88 H 02/24/25 09:26 Pulse Ox 98 02/24/25 09:26 Oxygen Delivery Method Room Air 02/24/25 09:26 BMI result Body Mass Index 28.2 Const General: cooperative, no acute distress, well developed and well groomed Nutritional Appearance: average body habitus and well nourished Orientation/consciousness: oriented to person, oriented to place and oriented to time Limitations: No language barrier HEENT Head: Yes normocephalic and Yes atraumatic Eyes General: appearance normal, both eyes and all related structures Pupils: Equal, round and reactive pupils present Neck Neck: Yes normal visual inspection and Yes no lymphadenopathy Thyroid: Thyroid normal Resp Effort & Inspection: normal respiratory effort and able to speak in complete sentences Auscultation: clear to auscultation bilaterally Cardio Rate: regular rate Rhythm: regular rhythm Heart sounds: Normal, physiologic split S2 sound present Peripheral pulses: radial pulses present and posterior tibial pulses present GI Inspection: No distended and No Abdominal panniculus present Palpation (GI): Soft to palpation, nontender, no guarding, not rigid and No hepatosplenomegaly present Percussion: Yes normal to percussion Auscultation: normal bowel sounds Rectal Exam - Female: deferred Skin General skin exam: no rashes or lesions noted, turgor normal, skin not dry, no jaundice, No spider nevi and no striae Rashes: no rashes Nails: normal Neuro Other: hands are trembling General: oriented to person, oriented to place and oriented to time Cranial nerves: Yes Equal, round and reactive pupils present and Yes Normal hearing present Speech: No Abnormal speech present Extrem General: Yes normal to inspection, No clubbing, No cyanosis and No edema Psych Appearance: grossly normal and well kempt Mental Status: mental status grossly normal Speech and movement: Pressured speech present Affect: Anxious affect present (EXTREMELY!) Attitude: cooperative Thought process: not confabulating, Perseverating thought process present and Racing thoughts present Thought content: Normal thought content present Insight: Limited insight present (Psych) (by anxiety) Judgement: Limited judgement present (Psych) Assessment & Plan Assessment & Plan (1) Irritable bowel syndrome with diarrhea: Code(s): K58.0 - Irritable bowel syndrome with diarrhea Category: Medical (2) Small intestinal bacterial overgrowth: Code(s): K63.89 - Other specified diseases of intestine Category: Medical Plan She had a respiratory infection and was tx'ed with augmentin 875 and her bowels improved to her normal for a few days than she had severe diarrhea. She then went on a 2 type lactobacillus with good results and she continues on this. Her bowels have been good but she had bloating and soreness of the abd. she perseverates that she still needs to get rid of the E coli 0157 infection that she had years ago, (in my records the micro dx showed this in [address] Zimmerman has been treating her for > 10 years) and she was reading about low dose macrobid for e coli and asks to go on that. This is an extremely anxious patient who has a distress to flustered medicine and is mostly doing research on holistic/marketing performance analyst epic sites. She does not understand that macrobid does not activate in the colon and concentrates in the urine and she was reading about this in reference to UTI's not intestinal infections. Her hands or trembling as she speaks and her blood pressure and her pulse her elevated further evidence of signs of her severe anxiety. I am really uncertain, actually unconvinced, that her problem is from an ongoing infectious agent and more from a functional bowel disorder from severe anxiety. However this is a difficult concept to impart to a patient who is overly focused on a microbe that affected her at least 6 years ago. She had a lot of stomach upset with flagyl (likely r/t her sulfa allergy). She is very focused on having another abx trial, so will do z pack and she does not want a long course. A great deal of time was spent educating her that you can not just try ?1 pill of an antibiotic? as she is suggesting because of the risk of bleeding antibiotic resistance and how that could very negatively impact her a long care health outcomes. She still very focused on the idea of Macrobid despite my efforts to educate her. This is a route I absolutely will not take as it would be only introducing potential risk when I know there is no therapeutic benefit. ROV 4 weeks. Medications: New azithromycin (Zithromax) 500 mg PO DAILY 3 days 3 tabs 0RF Coding Level of Care Code Est Pt Level 4 (80771) Diagnoses Irritable bowel syndrome with diarrhea K58.0 Small intestinal bacterial overgrowth K63.89 Time Spent (min) 36
== END 2025-02-24 10:06 | disposition home or self-care (01) ==
LOC: HO.HGI 09:23
PROVIDERS: PCP Internal Medicine; Visit Provider Nurse Practitioner
DX: K58.0 Irritable bowel syndrome with diarrhea (principal); K63.89 Other specified diseases of intestine
CPT/HCPCS: 99214

== ENCOUNTER → 2025-02-24 09:22 | Outpatient (BNVA) | payer OTHER, SELFPAY | PROVIDERS: PCP Internal Medicine; Visit Provider Nurse Practitioner | DX: K58.0 Irritable bowel syndrome with diarrhea (principal); K63.89 Other specified diseases of intestine | CPT/HCPCS: 99212 ==

== ENCOUNTER 2025-04-01 14:26 | Outpatient (AMB) | payer OTHER, SELFPAY ==
--- NOTE | 2025-04-01 14:28 | A.OFFVIS_ITS ---
Vital Signs 04/01/25 14:29 Height 5 ft 7 in Weight 175 lb BMI 27.4 BP 148/76 H Blood Pressure Location Rt brachial Position Sitting Pulse 84 Pulse Source Pulse Oximeter Pulse Oximetry (%) 98 Oxygen Delivery Method Room Air Intake Visit Reasons: IBS-D Intake Note: Established patient for mgmt of IBS-D. CC; Pt denies any new sx or concerns at this time. Pt states that the azithromycin she had been given at their last visit worked very well for them. Business Services Manager Required: No Allergies Aluminum Allergy (Unknown, Verified 04/01/25 14:34) tingling, rash, rash nickel [NICKEL] Allergy (Unknown, Verified 04/01/25 14:34) RASH Sulfa (Sulfonamide Antibiotics) [SULFA (SULFONAMIDE ANTIBIOTICS)] Allergy (Unknown, Verified 04/01/25 14:34) DIFF BREATHING, rash, oral swelling, SOB HPI HPI IBS-D: Details: Assessment & Plan (1) Irritable bowel syndrome with diarrhea: Code(s): K58.0 - Irritable bowel syndrome with diarrhea Category: Medical (2) Small intestinal bacterial overgrowth: Code(s): K63.89 - Other specified diseases of intestine Category: Medical Plan She had a respiratory infection and was tx'ed with augmentin 875 and her bowels improved to her normal for a few days than she had severe diarrhea. She then went on a 2 type lactobacillus with good results and she continues on this. Her bowels have been good but she had bloating and soreness of the abd. she perseverates that she still needs to get rid of the E coli 0157 infection that she had years ago, (in my records the micro dx showed this in [address] Zimmerman has been treating her for > 10 years) and she was reading about low dose macrobid for e coli and asks to go on that. This is an extremely anxious patient who has a distress to flustered medicine and is mostly doing research on holistic/solutions market consultant epic sites. She does not understand that macrobid does not activate in the colon and concentrates in the urine and she was reading about this in reference to UTI's not intestinal infections. Her hands or trembling as she speaks and her blood pressure and her pulse her elevated further evidence of signs of her severe anxiety. I am really uncertain, actually unconvinced, that her problem is from an ongoing infectious agent and more from a functional bowel disorder from severe anxiety. However this is a difficult concept to impart to a patient who is overly focused on a microbe that affected her at least 6 years ago. She had a lot of stomach upset with flagyl (likely r/t her sulfa allergy). She is very focused on having another abx trial, so will do z pack and she does not want a long course. A great deal of time was spent educating her that you can not just try ?1 pill of an antibiotic? as she is suggesting because of the risk of bleeding antibiotic resistance and how that could very negatively impact her a long care health outcomes. She still very focused on the idea of Macrobid despite my efforts to educate her. This is a route I absolutely will not take as it would be only introducing potential risk when I know there is no therapeutic benefit. ROV 4 weeks. Medications: New azithromycin (Zithromax) 500 mg PO DAILY 3 days 3 tabs 0RF TODAY'S VISIT She feels that the zithromax worked very well for her bowels !! ROV 3 mos as we watch and wait. [facility] Medical History History of thyroid nodule Encounter for routine adult health examination without abnormal findings Multinodular thyroid Essential hypertension Lymphopenia Generalized anxiety disorder BERTRAND (nonalcoholic steatohepatitis) GERD (gastroesophageal reflux disease) Irritable bowel syndrome with diarrhea Surgical History History of esophagogastroduodenoscopy (EGD) H/O colonoscopy Family History Mother Rheumatoid arthritis Social History Household Members: Children Housing: Apartment Alcohol intake: current Alcohol intake frequency: does not drink Patient Tobacco Use Status: Former Tobacco user e-Cigarette/Vaping Use: Never Used service: No Current occupational status: employed Cognitive needs: No Hearing needs: No Vision needs: No Review of Systems Const Denies fatigue, Denies fever(s), Denies night sweats, Denies poor appetite and Denies weight loss ENT Reports Normal hearing present, Denies dental pain, Denies dysphagia, Denies hearing loss, Denies mouth pain, Denies odynophagia, Denies throat swelling, Denies tongue swelling and Reports other (Dentition adequate) Card Reports no additional complaints Resp Reports no additional complaints GI Details: Denies abdominal pain, Denies melena, Reports bloating, Denies hematochezia, Denies constipation, Denies GI cramping, Denies dysphagia, Denies excessive flatus, Denies early satiety, Denies heartburn, Denies diarrhea, Denies nausea, Denies odynophagia, Denies vomiting and Denies hematemesis Skin/Breast Denies pruritus, Denies lesions, Denies rash and Denies jaundice Neuro Reports Normal hearing present and Denies Abnormal speech present Psych Reports anxiety Endo Denies fatigue Aller/Immun Denies throat swelling and Denies tongue swelling Physical Exam Vital Signs: Last Vital Signs Pulse 84 04/01/25 14:29 BP 148/76 H 04/01/25 14:29 Pulse Ox 98 04/01/25 14:29 Oxygen Delivery Method Room Air 04/01/25 14:29 BMI result Body Mass Index 27.4 Const General: cooperative, no acute distress, well developed and well groomed Nutritional Appearance: average body habitus and well nourished Orientation/consciousness: oriented to person, oriented to place and oriented to time Limitations: No language barrier HEENT Head: Yes normocephalic and Yes atraumatic Eyes General: appearance normal, both eyes and all related structures Pupils: Equal, round and reactive pupils present Neck Neck: Yes normal visual inspection and Yes no lymphadenopathy Thyroid: Thyroid normal Resp Effort & Inspection: normal respiratory effort and able to speak in complete sentences Auscultation: clear to auscultation bilaterally Cardio Rate: regular rate Rhythm: regular rhythm Heart sounds: Normal, physiologic split S2 sound present Peripheral pulses: radial pulses present and posterior tibial pulses present GI Inspection: No distended and No Abdominal panniculus present Palpation (GI): Soft to palpation, nontender, no guarding, not rigid and No hepatosplenomegaly present Percussion: Yes normal to percussion Auscultation: normal bowel sounds Rectal Exam - Female: deferred Skin General skin exam: no rashes or lesions noted, turgor normal, skin not dry, no jaundice, No spider nevi and no striae Rashes: no rashes Nails: normal Neuro General: oriented to person, oriented to place and oriented to time Cranial nerves: Yes Equal, round and reactive pupils present and Yes Normal hearing present Speech: No Abnormal speech present Extrem General: Yes normal to inspection, No clubbing, No cyanosis and No edema Psych Appearance: grossly normal and well kempt Mental Status: mental status grossly normal Speech and movement: Normal speech and movement present Affect: normal affect Attitude: cooperative Thought process: Normal thought process present and not confabulating Thought content: Normal thought content present Insight: Limited insight present (Psych) Judgement: Limited judgement present (Psych) Assessment & Plan Assessment & Plan (1) Irritable bowel syndrome with diarrhea: Code(s): K58.0 - Irritable bowel syndrome with diarrhea Category: Medical Plan She feels that the zithromax worked very well for her bowels !! ROV 3 mos as we watch and wait. Coding Level of Care Code Est Pt Level 3 (79326) Diagnoses Irritable bowel syndrome with diarrhea K58.0
[2025-04-01 14:29] VITALS: BP 148/76; PULSE 84; O2SAT 98; BMI 27.4
== END 2025-04-01 15:25 | disposition home or self-care (01) ==
LOC: HO.HGI 14:27
PROVIDERS: PCP Internal Medicine; Visit Provider Nurse Practitioner
DX: K58.0 Irritable bowel syndrome with diarrhea (principal)
CPT/HCPCS: 99213

== ENCOUNTER → 2025-04-01 14:26 | Outpatient (BNVA) | payer OTHER, SELFPAY | PROVIDERS: PCP Internal Medicine; Visit Provider Nurse Practitioner | DX: K58.0 Irritable bowel syndrome with diarrhea (principal) | CPT/HCPCS: 99212 ==

== ENCOUNTER 2025-06-10 09:45 | Outpatient (AMB) | payer OTHER, SELFPAY ==
--- OUTSIDE RECORDS SUMMARY | 2025-06-10 09:55 | XMS_ITS | Clinical Summary ---
Author Organization [facility] Address [address] [place] [id number] Phone Care Team Providers Care Coffee Brewer Name Role Phone Javier Song MD Primary Care Provider [phone] Allergies Active Allergy Reactions Criticality Noted Date Comments Sulfa (Sulfonamide Antibiotics) Shortness Of Breath,Swelling High 07/05/2016 Medications FLUoxetine (PROZAC) 20 MG tabletIndications :anxiety with depression Take 20 mg by mouth daily. Indications: Anxiety with Depression Active ALPRAZolam (XANAX) 1 MG tabletIndications :anxiety Take 1 mg by mouth nightly as needed for anxiety. Indications: Anxiety Active therapeutic multivitamin tablet Take 1 tablet by mouth daily. Active Social History Tobacco Use Types Packs/Day Years [...] on file Sexual Orientation Not on file Last Filed Vital Signs Vital Sign Reading Time Taken Comments Blood Pressure 124/80 07/05/2016 11:24 AM EDT Pulse 75 07/05/2016 11:24 AM EDT Temperature - - Respiratory Rate - - Oxygen Saturation 99% 07/05/2016 11:24 AM EDT Inhaled Oxygen Concentration - - Weight 81.6 kg (180 lb) 07/05/2016 11:24 AM EDT Height 170.2 cm (5' 7 ) 07/05/2016 11:24 AM EDT Body Mass Index 28.19 07/05/2016 11:24 AM EDT Plan of Treatment Health Maintenance Due Date Last Done Comments Adult Td,Tdap Booster 1974 LIPID PANEL 1974 DEPRESSION SCREENING 1986 SMOKING Hx and SMOKELESS TOBACCO SCREENING 1987 HEPATITIS C SCREENING 1992 HIV ONE-TIME SCREENING (18-6 5 YEARS) 1992 PAP SMEAR 1995 MAMMOGRAM 2014 COLOGUARD 2019 COLONOSCOPY 2019 COLORECTAL CANCER SCREENING 2019 FIT TEST 2019 FOBT 2019 SIGMOIDOSCOPY 2019 VIRTUAL COLONOSCOPY 2019 COVID-19 VACCINE (3 - 2023-2 5 season) 2024 12/27/2020, 11/29/2020 PNEUMOCOCCAL VACCINES (50+ years) (1 of 1 - PCV) 2024 ZOSTER VACCINES (1 of 2) 2024 HEPATITIS A VACCINES Aged Out No long er eligible based on patient's age to complete this topic HIB VACCINES Aged Out No longer eligi ble based on patient's age to complete this topic MENINGOCOCCAL VACCINES (ACWY) Aged Out No longer eligible based on patient's age to complete this topic MENINGOCOCCAL VACCINES (B) Aged Out N o longer eligible based on patient's age to complete this topic Medical Devices Not on file Insurance Care Teams Coffee Brewer Relationship Specialty Start Date End Date Javier Song MD [email or web address] PCP - General Internal Medicine 10/01/16 Additional Source Comments The information contained in this document represents components of the legal health record. It is not the complete legal health record.[facility]
[2025-06-10 10:19] VITALS: BP 136/60; PULSE 103; TEMP 36.7; O2SAT 99; BMI 27.1
--- NOTE | 2025-06-10 10:19 | AM.OFFWIN_ITS ---
Intake Vital Signs 06/10/25 10:19 Height 5 ft 7 in Weight 173 lb BMI 27.1 BP 136/60 Blood Pressure Location Lt brachial Position Sitting Pulse 103 H Pulse Source Pulse Oximeter Temp 98.1 F Temp Source Oral Pulse Oximetry (%) 99 Oxygen Delivery Method Room Air Intake Visit Reasons: EP skin infection under rt arm? Intake Note: pt presents with painful, swollen and red growth under right arm Patient Tobacco Use Status: Former Tobacco user Allergies Aluminum Allergy (Unknown, Verified 06/10/25 10:25) tingling, rash, rash nickel (NICKEL) Allergy (Unknown, Verified 06/10/25 10:25) RASH Sulfa (Sulfonamide Antibiotics) (SULFA (SULFONAMIDE ANTIBIOTICS)) Allergy (Unknown, Verified 06/10/25 10:25) DIFF BREATHING, rash, oral swelling, SOB Medication List - Last Reconciled 06/10/25 by Monster Hair MD amlodipine 5 mg PO DAILY aspirin (Adult Low Dose Aspirin) 81 mg PO DAILY cholecalciferol (vitamin D3) 50 mcg PO DAILY clonidine HCl 0.2 mg PO BEDTIME cyanocobalamin (vitamin B-12) (Vitamin B-12) 50 mcg PO DAILY fluoxetine 40 mg PO DAILY 90 days lorazepam 1 mg PO DAILY multivitamin (Daily Multi-Vitamin tablet) 1 tab PO DAILY Do you need a note to return to daycare/school/sports/work: No HPI EP skin infection under rt arm? HPI Details Chief Complaint Severe pain from a boil. History of Present Illness The patient is a 49 year old female presenting with a painful boil. Boil: - Noticed initially as a tiny dot in the shower. - Developed into an excruciatingly painf ul lesion over the past week. - Described as having a lot of pressure build-up . - Has been applying Neosporin with no im provement. - Pain is severe and rated as a 10. - Experienced a sense of malaise, prompt ing self-medication with amoxicillin just one dose yesterday - Patient is prone to developing boils a nd has self-managed previous occurrence s. Medical History: - Prone to developing boils. Medications: - Amoxicillin 875 mg, taken as a single dose due to severe pain and fear of bloodstream infection. Problem List - Boil Patient Instructions - Take Augmentin, one tablet in the morn ing and one at night, 12 hours apart, for 10 days. - It will help the boil mature, open up, and release fluid. - Use ibuprofen for inflammation, taking it with food. It can be taken up to three times a day. - Monitor the boil for signs of drainage . Review of Systems - General: No fever no chills - Neurological: No headaches no dizziness - Ear nose throat: No sore throat no hearing difficulty no ear pain - Cardiovascular: No syncope, no chest pain, no palpitations - Gastrointestinal: No nausea vomiting or diarrhea Physical Exam General: No acute distress HEENT: No acute findings Neck: Supple Respiratory system: Able to talk in full sentences Gastrointestinal: No pain Extremities: No new findings PROJECT MANAGEMENT INSTRUCTOR: Alert awake oriented x3 motor sensory intact Skin: close to right axilla indurated boil, no fluctuation surrounded by erythema , size of boil 1 in x 1 inch [facility] Medical History History of thyroid nodule Encounter for routine adult health examination without abnormal findings Multinodular thyroid Essential hypertension Lymphopenia Generalized anxiety disorder BERTRAND (nonalcoholic steatohepatitis) GERD (gastroesophageal reflux disease) Irritable bowel syndrome with diarrhea Surgical History History of esophagogastroduodenoscopy (EGD) H/O colonoscopy Family History Mother Rheumatoid arthritis Social History Household Members: Children Housing: Apartment Alcohol intake: current Alcohol intake frequency: does not drink Patient Tobacco Use Status: Former Tobacco user e-Cigarette/Vaping Use: Never Used service: No Current occupational status: employed Cognitive needs: No Hearing needs: No Vision needs: No Physical Exam Vital Signs: Last Vital Signs Temp 98.1 F 06/10/25 10:19 Pulse 103 H 06/10/25 10:19 BP 136/60 06/10/25 10:19 Pulse Ox 99 06/10/25 10:19 Oxygen Delivery Method Room Air 06/10/25 10:19 BMI result Body Mass Index 27.1 Assessment & Plan Assessment & Plan (1) Boil, axilla: Code(s): L02.429 - Furuncle of limb, unspecified Qualifiers: Laterality: right Qualified Code(s): L02.421 - Furuncle of right axilla Plan Chief Complaint Severe pain from a boil. History of Present Illness The patient is a 49 year old female presenting with a painful boil. Boil: - Noticed initially as a tiny dot in the shower. - Developed into an excruciatingly painful lesion over the past week. - Described as having a lot of pressure build-up . - Has been applying Neosporin with no improvement. - Pain is severe and rated as a 10. - Experienced a sense of malaise, prompting self-medication with amoxicillin just one dose yesterday - Patient is prone to developing boils and has self-managed previous occurrences. Medical History: - Prone to developing boils. Medications: - Amoxicillin 875 mg, taken as a single dose due to severe pain and fear of bloodstream infection. Problem List - Boil Patient Instructions - Take Augmentin, one tablet in the morning and one at night, 12 hours apart, for 10 days. - It will help the boil mature, open up, and release fluid. - Use ibuprofen for inflammation, taking it with food. It can be taken up to three times a day. - Monitor the boil for signs of drainage. Medications: New amoxicillin-pot clavulanate 875-125 mg 1 tab PO BID 10 days 20 tabs 0RF amoxicillin-pot clavulanate 875-125 mg 1 tab PO BID 20 tabs 0RF 10 days Coding Level of Care Code Est Pt Level 3 (74885) Diagnoses Furuncle of right axilla L02.421 Laterality: right
== END 2025-06-10 10:47 | disposition home or self-care (01) ==
PROVIDERS: PCP Internal Medicine; Visit Provider Internal Medicine
DX: L02.421 Furuncle of right axilla (principal)

== ENCOUNTER → 2025-06-10 09:45 | Outpatient (BNVA) | payer OTHER, SELFPAY | PROVIDERS: PCP Internal Medicine; Visit Provider Internal Medicine | DX: L02.421 Furuncle of right axilla (principal) | CPT/HCPCS: 99212 ==

== ENCOUNTER 2025-08-06 10:05 | Outpatient (AMB) | payer OTHER, SELFPAY ==
--- OUTSIDE RECORDS SUMMARY | 2014-09-05 01:00 | XMS_ITS | Encounter Summary ---
Author Organization [facility] Address [address] [place] [address] Phone Care Team Providers Care Chrome Tanner Name Role Phone Unavailable Primary Care Provider Unavailabl e Encounter Details Date Type Department Care Team (Late st Contact Info) Description 09/05/2014 Hospital Encounter [facility] [address] [place] [address] Marce Cassidy MD 55 [facility] [address] [place] [phone] [email or web address] Social History Tobacco Use Types [...] (No Interpretation) (09/05/2014 12:00 AM EST) Narrative [facility]G INTERFACES - 07/05/2016 11:05 AM EDT This study is for PACS storage only and not for interpretation. Procedure Note SYSTEMGENERATED, DOCUMENTATION - 07/05/2016 This study is for PACS storage only and not for interpretation. us Marce Cassidy MD IMG OUTSIDE IMAGING W/OUT INTERPRETATION Final Result [facility] INTERFACES documented in this encounter Visit Diagnoses Not on filedocumented in this encounter Additional Source Comments The information contained in this document represents components of the legal health record. It is not the complete legal health record.[facility]
--- OUTSIDE RECORDS SUMMARY | 2015-01-25 | XMS_ITS | Encounter Summary ---
Author Organization [facility] Address [address] [facility] [address] [place] [address] Phone Care Team Providers Care Instruction Dean Name Role Phone Unavailable Primary Care Provider Unavailabl e Encounter Details Date Type Department Care Team (Late st Contact Info) Description 01/25/2015 Hospital Encounter [facility] [address] [place] [address] Marce Cassidy MD 55 [facility] [address] [place] [phone] [email or web address] Social History Tobacco Use Types Packs/Day [...] (No Interpretation) (01/25/2015 12:00 AM EDT) Narrative [facility]ES - 07/05/2016 10:53 AM EDT This study is for PACS storage only and not for interpretation. Procedure Note SYSTEMGENERATED, DOCUMENTATION - 07/05/2016 This study is for PACS storage only and not for interpretation. us Marce Cassidy MD IMG OUTSIDE IMAGING W/OUT INTERPRETATION Final Result [facility] documented in this encounter Visit Diagnoses Not on filedocumented in this encounter Additional Source Comments The information contained in this document represents components of the legal health record. It is not the complete legal health record.[facility]
--- OUTSIDE RECORDS SUMMARY | 2016-06-11 | XMS_ITS | Encounter Summary ---
Author Organization [facility] Address [address] [facility] [address] [place] [address] Phone Care Team Providers Care Assistant Program Manager Name Role Phone Unavailable Primary Care Provider Unavailabl e Encounter Details Date Type Department Care Team (Late st Contact Info) Description 06/11/2016 Hospital Encounter [facility] [address] [place] [address] Marce Cassidy MD 55 [facility] [address] [place] [phone] [email or web address] Social History Tobacco Use Types [...] (No Interpretation) (06/11/2016 12:00 AM EDT) Narrative [facility] - 07/05/2016 10:00 AM EDT [...] It is not the complete legal health record.[facility]
--- NOTE | 2025-08-06 10:06 | AM.OFFWIN_ITS ---
Intake Vital Signs 08/06/25 10:10 Height 5 ft 7 in Weight 169 lb BMI 26.5 BP 156/70 H Blood Pressure Location Lt brachial Position Sitting Respiration 15 Pulse 99 Pulse Source Pulse Oximeter Temp 98.3 F Temp Source Oral Pulse Oximetry (%) 99 Oxygen Delivery Method Room Air Intake Visit Reasons: EP, R under arm, cyst Intake Note: Pt is here today c/o Rt armpit cyst very painful re-current Patient Tobacco Use Status: Former Tobacco user Allergies Aluminum Allergy (Unknown, Verified 08/06/25 10:12) tingling, rash, rash nickel (NICKEL) Allergy (Unknown, Verified 08/06/25 10:12) RASH Sulfa (Sulfonamide Antibiotics) (SULFA (SULFONAMIDE ANTIBIOTICS)) Allergy (Unknown, Verified 08/06/25 10:12) DIFF BREATHING, rash, oral swelling, SOB Medication List - Last Reconciled 08/06/25 by Parker Rodriguez MD amlodipine 5 mg PO DAILY aspirin (Adult Low Dose Aspirin) 81 mg PO DAILY cholecalciferol (vitamin D3) 50 mcg PO DAILY clonidine HCl 0.2 mg PO BEDTIME cyanocobalamin (vitamin B-12) (Vitamin B-12) 50 mcg PO DAILY fluoxetine 40 mg PO DAILY 90 days lorazepam 1 mg PO DAILY multivitamin (Daily Multi-Vitamin tablet) 1 tab PO DAILY HPI EP, R under arm, cyst HPI Details Patient has multiple abscesses under right arm Painful and erythematous. These appear to be draining. She has had issues with this before and was given Augmentin. She notes that this cleared it up but it keeps returning. [facility] Medical History History of thyroid nodule Encounter for routine adult health examination without abnormal findings Multinodular thyroid Essential hypertension Lymphopenia Generalized anxiety disorder BERTRAND (nonalcoholic steatohepatitis) GERD (gastroesophageal reflux disease) Irritable bowel syndrome with diarrhea Surgical History History of esophagogastroduodenoscopy (EGD) H/O colonoscopy Family History Mother Rheumatoid arthritis Social History Household Members: Children Housing: Apartment Alcohol intake: current Alcohol intake frequency: does not drink Patient Tobacco Use Status: Former Tobacco user e-Cigarette/Vaping Use: Never Used service: No Current occupational status: employed Cognitive needs: No Hearing needs: No Vision needs: No Review of Systems Const Denies chills, Denies fatigue, Denies fever(s), Denies headache(s) and Denies weakness ENT Denies dizziness and Denies headache(s) Card Denies dyspnea Resp Denies cough, Denies dyspnea, Denies wheezing and Denies other ( shortness of breath) Musc Denies numbness and Denies tingling Skin/Breast Details: See HPI Neuro Denies dizziness, Denies headache(s), Denies numbness, Denies tingling, Denies paresthesias and Denies weakness Psych Denies anxiety and Denies depression Endo Denies fatigue Aller/Immun Denies wheezing Physical Exam Vital Signs: Last Vital Signs Temp 98.3 F 08/06/25 10:10 Pulse 99 08/06/25 10:10 Resp 15 08/06/25 10:10 BP 156/70 H 08/06/25 10:10 Pulse Ox 99 08/06/25 10:10 Oxygen Delivery Method Room Air 08/06/25 10:10 BMI result Body Mass Index 26.5 Const General: no acute distress and well developed Nutritional Appearance: well nourished Orientation/consciousness: patient oriented x3 HEENT Head: Yes normocephalic and Yes atraumatic Eyes General: appearance normal, both eyes and all related structures Pupils: Equal, round and reactive pupils present EOM: EOMs intact bilaterally Resp Effort & Inspection: normal respiratory effort Skin Other: Right axilla: 3 1 cm abscesses which appear to be swollen and draining 1 smaller abscess Neuro General: patient oriented x3 and gait normal Cranial nerves: Yes Equal, round and reactive pupils present Psych Affect: normal affect Assessment & Plan Assessment & Plan (1) Hidradenitis suppurativa of right axilla: Code(s): L73.2 - Hidradenitis suppurativa Plan: Sending a script for Augmentin Warm compresses/soaks Can use Hibiclens Advised against shaving closely and may want to use clippers instead in the future. Ultimately may want to consider a more permanent solution such as laser treatments for hair removal at axillae Medications: Refilled amoxicillin-pot clavulanate 875-125 mg 1 tab PO BID 20 tabs 0RF 10 days Coding Level of Care Code Est Pt Level 3 (02073) Diagnoses Hidradenitis suppurativa of right axilla L73.2
--- OUTSIDE RECORDS SUMMARY | 2025-08-06 10:07 | XMS_ITS | Encounter Summary ---
Author Organization [facility] Address [address] [place] [address] Phone Care Team Providers Care Machine Ii Coremaker Name Role Phone Monster Hair MD Primary Care Provider [phone] Javier Song MD Primary Care Provider [phone] Encounter Details Date Type Department Care Team (Late st Contact Info) Description 07/08/2016 Telephone [facility] Adult [facility] [address] [place] [address], [address] Floor, [address] [place] [address] Marce Cassidy MD [address] [place] [address] [address] [place] [address] [email or web address] Social History Tobacco Use Types Packs/Day Years Used Date Smoking Tobacco: Never Assessed Comments Unknown Sex and Gender Information Value Date Recorded Sex Assigned at Not on file Legal Sex Female 1:19 PM EDT Gender Identity Not on file Sexual Orientation Not on file documented as of this encounter Plan of Treatment Not on file documented as of this encounter Visit Diagnoses Not on filedocumented in this encounter Care Teams Machine Ii Coremaker Relationship Specialty Start Date End Date Monster Hair MD [address] [place] [address] PCP - General Internal Medicine 06/12/16 09/30/16 Javier Song MD [address] [place] [address] [email or web address] PCP - General Internal Medicine 10/01/16 documented as of this encounter Additional Source Comments The information contained in this document represents components of the legal health record. It is not the complete legal health record.[facility]
--- OUTSIDE RECORDS SUMMARY | 2025-08-06 10:07 | XMS_ITS | Clinical Summary ---
Author Organization [facility] Address [address] [place] [address] Phone Care Team Providers Care Medicare Sales Executive Name Role Phone Javier Song MD Primary Care Provider [phone] Allergies Active Allergy Reactions Criticality Noted Date [...] FOBT 2019 SIGMOIDOSCOPY 2019 VIRTUAL COLONOSCOPY 2019 PNEUMOCOCCAL VACCINES (50+ years) (1 of 1 - PCV) 2024 ZOSTER VACCINES (1 of 2) 2024 INFLUENZA VACCINE (#1) 2025 07/12/2020 COVID-19 VACCINE (3 - 2024-2 6 season) 2025 12/27/2020, 11/29/2020 RSV VACCINE (1 - 1-dose 75+ series) 2049 HEPATITIS A VACCINES Aged Out No long [...] topic Medical Devices Not on file Insurance [employer] Member Subscriber Plan / Payer ( fective 2016-Present) Name:Angelika Deleon Relation to Subscriber:Self Name:Davearaceli Angelika Payer ID:Not on file Type:Medicaid Address: [place] [id number] Care Teams Medicare Sales Executive Relationship Specialty Start Date End Date Javier Song MD PCP - General Internal Medicine 10/01/16 Additional Source Comments The information contained in this document represents components of the legal health record. It is not the complete legal health record.[facility]
--- OUTSIDE RECORDS SUMMARY | 2025-08-06 10:07 | XMS_ITS | Encounter Summary ---
Author Organization [facility] Address [address] [place] [address] Phone Care Team Providers Care Supply Controller Name Role Phone Monster Hair MD Primary Care Provider [phone] Javier Song MD Primary Care Provider [phone] Encounter Details Date Type Department Care Team (Late st Contact Info) Description 07/10/2016 Telephone [facility] Adult Cyst[facility] Fibrosis Clinic [address] [place] [address], [address] Floor, [address] [place] [address] Marce Cassidy MD [address] [place] [address] [address] [place] [address] [email or web address] Social History Tobacco Use Types Packs/Day [...] on filedocumented in this encounter Care Teams Supply Controller Relationship Specialty Start Date End Date Monster Hair MD [address] [place] [address] PCP - General Internal Medicine 06/12/16 09/30/16 Javier Song MD [address] [place] [address] [email or web address] PCP - General Internal Medicine 10/01/16 documented as of this encounter Additional Source Comments The information contained in this document represents components of the legal health record. It is not the complete legal health record.[facility]
[2025-08-06 10:10] VITALS: BP 156/70; PULSE 99; RESP 15; TEMP 36.8; O2SAT 99; BMI 26.5
== END 2025-08-06 10:32 | disposition home or self-care (01) ==
PROVIDERS: PCP Internal Medicine; Visit Provider Family Medicine
DX: L73.2 Hidradenitis suppurativa (principal)

== ENCOUNTER → 2025-08-06 10:05 | Outpatient (BNVA) | payer OTHER, SELFPAY | PROVIDERS: PCP Internal Medicine | DX: L73.2 Hidradenitis suppurativa (principal) | CPT/HCPCS: 99212 ==

== ENCOUNTER 2025-08-27 06:44 | Outpatient (REF) | payer OTHER, SELFPAY ==
--- OUTSIDE RECORDS SUMMARY | 2014-09-05 01:00 | XMS_ITS | Encounter Summary ---
Author Organization [facility] Address [address] [facility] [address] [place] [address] Phone Care Team Providers Care Teacher Cclc Name Role Phone Unavailable Primary Care Provider Unavailabl e Encounter Details Date Type Department Care Team (Late st Contact Info) Description 09/05/2014 Hospital Encounter [facility] [address] [place] [address] Marce Cassidy MD 55 [facility] [address] [place] [phone] [email or web address] [email or web address] Social History Tobacco Use [...] (No Interpretation) (09/05/2014 12:00 AM EST) Narrative [facility] - 07/05/2016 11:05 AM EDT This study is for PACS storage only and not for interpretation. Procedure Note SYSTEMGENERATED, DOCUMENTATION - 07/05/2016 This study is for PACS storage only and not for interpretation. us Mrace Cassidy MD IMG OUTSIDE IMAGING W/OUT INTERPRETATION Final Result [facility] documented in this encounter Visit Diagnoses Not on filedocumented in this encounter Additional Source Comments The information contained in this document represents components of the legal health record. It is not the complete legal health record.[facility]
--- OUTSIDE RECORDS SUMMARY | 2015-01-25 | XMS_ITS | Encounter Summary ---
Author Organization [facility] Address [address] [facility] [address] [place] [address] Phone Care Team Providers Care Console Attendant Name Role Phone Unavailable Primary Care Provider Unavailabl e Encounter Details Date Type Department Care Team (Late st Contact Info) Description 01/25/2015 Hospital Encounter [facility] [address] [place] [address] Marce Cassidy MD 55 [facility] [address] [place] [phone] [email or web address] Social History Tobacco Use Types Packs/Day [...] (No Interpretation) (01/25/2015 12:00 AM EDT) Narrative [facility]G INTERFACES - 07/05/2016 10:53 AM EDT This study is for PACS storage only and not for interpretation. Procedure Note SYSTEMGENERATED, DOCUMENTATION - 07/05/2016 This study is for PACS storage only and not for interpretation. us Marce Cassidy MD IMG OUTSIDE IMAGING W/OUT INTERPRETATION Final Result [facility] IMG INTERFACES documented in this encounter Visit Diagnoses Not on filedocumented in this encounter Additional Source Comments The information contained in this document represents components of the legal health record. It is not the complete legal health record.[facility]
--- OUTSIDE RECORDS SUMMARY | 2016-06-11 | XMS_ITS | Encounter Summary ---
Author Organization [facility] Address [address] [facility] [address] [place] [address] Phone Care Team Providers Care Electronic Technologist Name Role Phone Unavailable Primary Care Provider Unavailabl e Encounter Details Date Type Department Care Team (Late st Contact Info) Description 06/11/2016 Hospital Encounter [facility] [address] [place] [address] Marce Cassidy MD 55 [facility] [address] [place] [phone] [email or web address] [email or web address] Social History Tobacco Use Types [...] (No Interpretation) (06/11/2016 12:00 AM EDT) Narrative [facility] [place] - 07/05/2016 10:00 AM EDT This study is for PACS storage only and not for interpretation. Procedure Note SYSTEMGENERATED, DOCUMENTATION - 07/05/2016 This study is for PACS storage only and not for interpretation. us Marce Cassidy MD IMG OUTSIDE IMAGING W/OUT INTERPRETATION Final Result [facility] documented in this encounter Visit Diagnoses Not on filedocumented in this encounter Additional Source Comments The information contained in this document represents components of the legal health record. It is not the complete legal health record.[facility]
--- OUTSIDE RECORDS SUMMARY | 2025-08-27 06:48 | XMS_ITS | Clinical Summary ---
Author Organization [facility] Address [address] [place] [address] Phone Care Team Providers Care Knitting Inspector Name Role Phone Javier Song MD Primary Care Provider [phone] Allergies Active Allergy Reactions Criticality Noted Date [...] topic Medical Devices Not on file Insurance [employer] Member Subscriber Plan / Payer ( fective 2016-Present) Name:Angelika Deleon Relation to Subscriber:Self Name:Davearaceli Angelika Payer ID:Not on file Type:Medicaid Address: [place] [id number] Care Teams Knitting Inspector Relationship Specialty Start Date End Date Javier Song MD PCP - General Internal Medicine 10/01/16 Additional Source Comments The information contained in this document represents components of the legal health record. It is not the complete legal health record.[facility]
--- OUTSIDE RECORDS SUMMARY | 2025-08-27 06:48 | XMS_ITS | Encounter Summary ---
Author Organization [facility] Address [address] [place] [address] Phone Care Team Providers Care Business Taxes Specialist Name Role Phone Monster Hair MD Primary Care Provider [phone] Javier Song MD Primary Care Provider [phone] Encounter Details Date Type Department Care Team (Late st Contact Info) Description 07/10/2016 Telephone [facility] Adult [facility] Fibrosis Clinic [address] [place] [address], [address] Floor, [address] [place] [address] Marce Cassidy MD [address] [place] [address] [address] [place] [address] [email or web address] Social History Tobacco Use Types Packs/Day [...] on filedocumented in this encounter Care Teams Business Taxes Specialist Relationship Specialty Start Date End Date Monster Hair MD [address] [place] [address] PCP - General Internal Medicine 06/12/16 09/30/16 Javier Song MD [address] [place] [address] [email or web address] PCP - General Internal Medicine 10/01/16 documented as of this encounter Additional Source Comments The information contained in this document represents components of the legal health record. It is not the complete legal health record.[facility]
--- OUTSIDE RECORDS SUMMARY | 2025-08-27 06:48 | XMS_ITS | Encounter Summary ---
Author Organization [facility] Address [address] [place] [address] Phone Care Team Providers Care Electrical Integrator Name Role Phone Monster Hair MD Primary Care Provider [phone] Javier Song MD Primary Care Provider [phone] Encounter Details Date Type Department Care Team (Late st Contact Info) Description 07/08/2016 Telephone [facility] [address] [place] [address], [address]nd Floor, [address] [place] [address] Marce Cassidy MD [address] [place] [address] [address] [place] [address] [email or web address] Social History Tobacco Use Types Packs/Day [...] on filedocumented in this encounter Care Teams Electrical Integrator Relationship Specialty Start Date End Date Monster Hair MD [address] [facility] [place] [address] [place] [address] PCP - General Internal Medicine 06/12/16 09/30/16 Javier Song MD [address] [facility] [place] [place] [address] [email or web address] PCP - General Internal Medicine 10/01/16 documented as of this encounter Additional Source Comments The information contained in this document represents components of the legal health record. It is not the complete legal health record.[facility]
[2025-08-27 11:31] LABS: MANUAL DIFF FLAG NO
[2025-08-27 11:33] LABS: Hematocrit 41.9 % (37.0-47.0); Hemoglobin 13.8 g/dl (12.0-16.0); Imm Gran Abs Auto 0.01 X10*3/uL (0.00-0.03); Imm Gran Pct Auto 0.2 % (0.0-0.4); Lymphocytes Absolute Auto 1.3 X10*3/uL (1.2-4.9); Mean Corpuscular HGB Conc 32.9 g/dl (31.0-35.0); Mean Corpuscular Hemoglobin 29.2 pg (27.0-33.0); Mean Corpuscular Volume 88.8 fL (80.0-98.0); NRBC Abs Auto 0.000 X10*3/uL (0.0-0.012); NRBC Pct Auto 0.0 /100WBC (0.0-0.2); Platelet Count 267 X10*3/uL (160-400); Red Blood Count 4.72 X10*6/uL (4.20-5.50); White Blood Count 6.0 X10*3/uL (4.8-10.8)
[2025-08-27 12:02] LABS: Alanine Aminotransferase 23 U/L (0-31); Anion Gap 10 (12-20); Aspartate Amino Transferase 24 U/L (5-31); Blood Urea Nitrogen 13 mg/dL (9-16); Calcium 9.1 mg/dL (8.4-10.2); Carbon Dioxide 27 mmol/L (22-29); Chloride 106 mmol/L (96-108); Cholesterol 157 mg/dL (<200); Estimated Glomerular Filt Rate > 60; HDL Cholesterol 57 mg/dL (>40); Potassium 4.4 mmol/L (3.3-5.1); Sodium 139 mmol/L (135-145); Triglycerides 65 mg/dL (<150)
[2025-08-27 12:08] LABS: Free T4 (Free Thyroxine) 0.93 ng/dL (0.71-1.85); Thyroid Stimulating Hormone 0.77 uIU/mL (0.32-4.0)
[2025-08-27 12:18] LABS: Folate 11.0 ng/mL (> or = 4.0); Vitamin B12 586 pg/mL (200-900)
== END 2025-08-27 06:45 | disposition home or self-care (01) ==
LOC: HO.HMGCLDS 06:44
PROVIDERS: PCP Internal Medicine; Visit Provider Internal Medicine
DX: Z13.1 Encounter for screening for diabetes mellitus (principal); Z13.220 Encounter for screening for lipoid disorders; I11.0 Hypertensive heart disease with heart failure; E04.2 Nontoxic multinodular goiter; K75.81 Nonalcoholic steatohepatitis (NASH); K58.0 Irritable bowel syndrome with diarrhea; F41.1 Generalized anxiety disorder; I10 Essential (primary) hypertension
CPT/HCPCS: 36415; 80048; 80061; 82306; 82607; 82746; 84439; 84443; 84450; 84460; 85025

== ENCOUNTER 2025-09-05 13:17 | Outpatient (AMB) | payer OTHER, SELFPAY ==
--- OUTSIDE RECORDS SUMMARY | 2014-09-05 | XMS_ITS | Encounter Summary ---
Author Organization [facility] Address [address] [address] [place] [address] Phone Care Team Providers Care Senior Quality Engineer Name Role Phone Unavailable Primary Care Provider Unavailabl e Encounter Details Date Type Department Care Team (Late st Contact Info) Description 09/05/2014 Hospital Encounter [facility] [address] [place] [address] Marce Cassidy MD [address] [facility] [address] [place] [phone] [email or web address] Social History Tobacco Use Types Packs/Day Years [...] (No Interpretation) (09/05/2014 12:00 AM EST) Narrative [facility] [place] [place] - 07/05/2016 11:05 AM EDT This study is for PACS storage only and not for interpretation. Procedure Note SYSTEMGENERATED, DOCUMENTATION - 07/05/2016 This study is for PACS storage only and not for interpretation. us Marce Cassidy MD IMG OUTSIDE IMAGING W/OUT INTERPRETATION Final Result [facility] documented in this encounter Visit Diagnoses Not on filedocumented in this encounter Additional Source Comments The information contained in this document represents components of the legal health record. It is not the complete legal health record.[facility]
--- OUTSIDE RECORDS SUMMARY | 2015-01-24 23:00 | XMS_ITS | Encounter Summary ---
Author Organization [facility] Address [address] [facility] [address] [address] [place] [address] Phone Care Team Providers Care Electromedical Equipment Repairer Name Role Phone Unavailable Primary Care Provider Unavailabl e Encounter Details Date Type Department Care Team (Late st Contact Info) Description 01/25/2015 Hospital Encounter [facility] [address] [place] [address] Marce Cassidy MD 55 [facility] [address] [place] [phone] [email or web address] [email or web address] Social History Tobacco Use [...] Name Priority Date/Time Associated Diagnosis Comments CT ABDOMEN OUTSIDE (NO INTERPRETATION) Routine 01/25/2015 12:00 AM EDT documented in this encounter Results * CT Abdomen Outside (No Interpretation) (01/25/2015 12:00 AM EDT) Narrative [facility] IMG INTERFACES - 07/05/2016 10:53 AM EDT This study is for PACS storage only and not for interpretation. Procedure Note SYSTEMGENERATED, DOCUMENTATION - 07/05/2016 This study is for PACS storage only and not for interpretation. us Marce Cassidy MD IMG OUTSIDE IMAGING W/OUT INTERPRETATION Final Result [facility] IMG INTERFAC[facility] documented in this encounter Visit Diagnoses Not on filedocumented in this encounter Additional Source Comments The information contained in this document represents components of the legal health record. It is not the complete legal health record.[facility]
--- OUTSIDE RECORDS SUMMARY | 2016-06-10 23:00 | XMS_ITS | Encounter Summary ---
Author Organization [facility] Address [address] [facility] [address] [place] [address] Phone Care Team Providers Care Forest Management Professor Name Role Phone Unavailable Primary Care Provider Unavailabl e Encounter Details Date Type Department Care Team (Late st Contact Info) Description 06/11/2016 Hospital Encounter [facility] [address] [place] [address] Marce Cassidy MD 55 [facility] [address] [place] [phone] [email or web address] Social History Tobacco Use Types Packs/Day [...] (No Interpretation) (06/11/2016 12:00 AM EDT) Narrative [facility] - 07/05/2016 10:00 AM EDT [...] It is not the complete legal health record.[facility]
--- NOTE | 2025-09-05 13:30 | A.OFFPC_ITS ---
Vital Signs 09/05/25 13:31 Height 5 ft 7 in Weight 168 lb BMI 26.3 BP 148/74 H Blood Pressure Location Lt brachial Position Sitting Respiration 16 Pulse 109 H Pulse Source Pulse Oximeter Temp 97.8 F Temp Source Oral Pulse Oximetry (%) 98 Oxygen Delivery Method Room Air Intake Visit Reasons: Annual PE Intake Note: Pt is here today for her PE: Android Platform Developer Required: No Allergies Aluminum Allergy (Unknown, Verified 09/05/25 13:59) tingling, rash, rash nickel (NICKEL) Allergy (Unknown, Verified 09/05/25 13:59) RASH Sulfa (Sulfonamide Antibiotics) (SULFA (SULFONAMIDE ANTIBIOTICS)) Allergy (Unknown, Verified 09/05/25 13:59) DIFF BREATHING, rash, oral swelling, SOB Medication List - Last Reconciled 09/05/25 by Anne Grey MD amlodipine 5 mg PO DAILY aspirin (Adult Low Dose Aspirin) 81 mg PO DAILY cholecalciferol (vitamin D3) 50 mcg PO DAILY clonidine HCl 0.2 mg PO BEDTIME fluoxetine 40 mg PO DAILY 90 days lorazepam 1 mg PO BEDTIME 30 days multivitamin (Daily Multi-Vitamin tablet) 1 tab PO DAILY Tobacco use date assessed: 09/05/25 Dental Screening Dental Screen Date: 09/05/25 Did you have a dental visit in the last 12 months?: Yes Did you have a dental problem in the last 6 months where you did not have access to dental care?: No Was dental information given to patient?: Patient has dentist HPI Annual PE HPI Details 50-year-old lady , with a past medical h istory significant for hypertension, generalized anxiety disorder and multinodular thyroid, here today for physical exam. [facility] Medical History History of thyroid nodule Encounter for routine adult health examination without abnormal findings Multinodular thyroid Essential hypertension Lymphopenia Generalized anxiety disorder BERTRAND (nonalcoholic steatohepatitis) GERD (gastroesophageal reflux disease) Irritable bowel syndrome with diarrhea Surgical History History of esophagogastroduodenoscopy (EGD) H/O colonoscopy Family History Mother Rheumatoid arthritis Social History Household Members: Children Housing: Apartment Alcohol intake: current Alcohol intake frequency: does not drink Patient Tobacco Use Status: Former Tobacco user e-Cigarette/Vaping Use: Never Used service: No Current occupational status: employed Cognitive needs: No Hearing needs: No Vision needs: No Female Reproductive History Menstrual Duration of menses: 6-7 days Date of last menstrual period: 08/29/25 control method: none Questionnaire PHQ-9 Over the last 2 weeks, how often have you been bothered by any of the following problems? 1. Little interest or pleasure in doing things: more than half the days 2. Feeling down, depressed, or hopeless: more than half the days 3. Trouble falling or staying asleep, or sleeping too much: more than half the days 4. Feeling tired or having little energy: not at all 5. Poor appetite or overeating: more than half the days 6. Feeling bad about yourself - or that you are a failure or have let yourself or your family down: not at all 7. Trouble concentrating on things, such as reading the newspaper or watching television: more than half the days 8. Moving or speaking so slowly that other people could have noticed. Or the opposite - being so fidgety or restless that you have been moving around a lot more than usual: not at all 9. Thoughts that you would be better off or of hurting yourself in some way: not at all Total score: 10 Depression Screening Interpretation: Positive Depression Screening Done: Yes 72151 - PHQ-9 Billing: Yes Source: Developed by Drs. Luc Ruiz, Penny Lord, Arnoldo Fink and colleagues, with an educational lisa from [employer]. Thrive Questionnaire Date Thrive assessed: 08/29/25 I am a: Patient What is your living situation today?: I have a steady place to live Within the past 12 months, did the food you bought not last and you didn't have the money to get more?: Never true Within the past 12 months, did you worry whether your food would run out before you got money to buy more?: Never true Do you have trouble paying for medicines?: No Do you have trouble getting transportation to medical appointments?: No Do you have trouble paying your heating and electricity bill?: No Do you have trouble taking care of your child, family member or friend?: No Do you have trouble with day-to-day activities such as bathing, preparing meals, shopping, managing finances, etc.?: No Are you currently unemployed and looking for a job?: No Are you interested in more education?: No Please select the resources that you would like help with: None Currently or been in a relationship where the following occur: No concerns reported THRIVE Score: 0 AUDIT C Alcohol Use Questionnaire (AUDIT-C) 1. How often do you have a drink containing alcohol?: Monthly or less 2. How many drinks containing alcohol do you have on a typical day when you are drinking?: 1 or 2 3. How often do you have six or more drinks on one occasion?: Less than monthly Total Score: 2 Score Reviewed/Action Taken: Yes KALI-7 AMB Questionnaire KALI-7 Date KALI - 7 assessed: 09/05/25 Feeling nervous, anxious, or on edge: 3 = Nearly every day Not being able to stop or control worryin = Nearly every day Worrying too much about different things: 3 = Nearly every day Trouble relaxin = Nearly every day Being so restless that it is hard to sit still: 0 = Not at all Becoming easily annoyed or irritable: 2 = More than half the days Feeling afraid as if something awful might happen: 2 = More than half the days Total KALI-7 score (0-4 normal; 5-9 mild; 10-14 moderate; 15-21 severe): 16 Source: Developed by Drs. Luc Ruiz, Penny Lord, Arnoldo Fink and colleagues, with an educational lisa from [employer]. KALI-7 Assessment Billing KALI-7 Assessment Tool: KALI-7 Assessment 61320 Physical exam (Primary Care) Vital Signs: Last Vital Signs Temp 97.8 F 09/05/25 13:31 Pulse 109 H 09/05/25 13:31 Resp 16 09/05/25 13:31 BP 148/74 H 09/05/25 13:31 Pulse Ox 98 09/05/25 13:31 Oxygen Delivery Method Room Air 09/05/25 13:31 BMI result Body Mass Index 26.3 Tobacco/Smoking Status: Tobacco use Status Tobacco use date assessed 09/05/25 09/05/25 13:34 Patient Tobacco Use Status Former Tobacco user 09/05/25 13:31 e-Cigarette/Vaping Use Never Used 09/05/25 13:31 PHQ-9: PHQ-9 Score PHQ-9: Total score 10 09/05/25 13:56 Depression Screening Interpretation: Positive Thrive Assessment: Date of Thrive Assessment Date Thrive assessed 08/29/25 09/05/25 13:31 Currently or been in a relationship where the following occur: No concerns reported Office Procedures Flu Questionnaire Does the patient have a severe egg allergy?: No Does the patient have severe life threatening allergies?: No Does the patient have a fever or illness today?: No Has the patient ever had Guillain-Elgin Syndrome?: No Has the patient ever had any past reaction to a flu shot?: No Immunizations Fluarix 2034-2568 (PF) 45 mcg (15 mcg x 3)/0.5 mL IM syringe Performing Provider: Anne Grey MD [place] [facility] [place] [facility] Administered by: Shira Hebert CMA on 09/05/25 13:58 Dose Route Admin Location Dispensed Lot Number Expiration Date [facility] Water [employer]i Operator 0.5 mL IM Left Deltoid 0.5 mL [id number] 04/25/26 86930-147-10 [employer] VIS Given Date VIS Provided VIS Publication Date 09/05/25 Single Vaccine 24 Eligibility Eligibility Date Funding Source Not [facility] Eligible 09/05/25 Private Coding Level of Care Code Est Pt Prev Care 40-64y(77157) Diagnoses Generalized anxiety disorder F41.1 Essential hypertension I10 Hidradenitis suppurativa of right axilla L73.2 Screening for malignant neoplasm of cervix Z12.4 Furuncle of right axilla L02.421 Laterality: right Additional Codes KALI-7 Assessment Billing - KALI-7 Assessment Tool: KALI-7 Assessment 39335 ([id number]) PHQ-9 - 35849 - PHQ-9 Billing: Yes ([id number]) Assessment & Plan Assessment & Plan (1) Generalized anxiety disorder: Code(s): F41.1 - Generalized anxiety disorder Category: Medical (2) Essential hypertension: Code(s): I10 - Essential (primary) hypertension Category: Medical (3) Hidradenitis suppurativa of right axilla: Code(s): L73.2 - Hidradenitis suppurativa Category: Medical (4) Screening for malignant neoplasm of cervix: Code(s): Z12.4 - Encounter for screening for malignant neoplasm of cervix (5) Boil, axilla: Code(s): L02.429 - Furuncle of limb, unspecified Category: Medical Qualifiers: Laterality: right Qualified Code(s): L02.421 - Furuncle of right axilla Orders: Orders Influenza 0777-1500 Immunization Today Z23 - Encounter for immunization Referrals Dermatology Referral L73.2 - Hidradenitis suppurativa Cologuard Test Z12.11 - Encounter for screening for malignant neoplasm of colon, Z12.12 - Encounter for screening for malignant neoplasm of rectum VETERINARY PATHOLOGIST Referral Z12.4 - Encounter for screening for malignant neoplasm of c ervix, Z87.42 - Personal history of other diseases of the female genital tract General Surgery Referral L02.421 - Furuncle of right axilla Medications: New metoprolol succinate ER 25 mg PO DAILY 30 tabs 3RF I10 - Essential (primary) hypertension amlodipine 10 mg PO DAILY 90 tabs 1RF
[2025-09-05 13:31] VITALS: BP 148/74; PULSE 109; RESP 16; TEMP 36.6; O2SAT 98; BMI 26.3
--- OUTSIDE RECORDS SUMMARY | 2025-09-05 15:23 | XMS_ITS | Clinical Summary ---
Author Organization [facility] Address [address] [place] [address] Phone Care Team Providers Care Teacher Industrial Arts Name Role Phone Javier Song MD Primary Care Provider [phone] Allergies Active Allergy Reactions Criticality Noted Date [...] topic Medical Devices Not on file Insurance [employer] [address] Member Subscriber Plan / Payer ( fective 2016-Present) Name:Angelika Deleon Relation to Subscriber:Self Name:Davearaceli Angelika Payer ID:Not on file Type:Medicaid Address: [place] [id number] Care Teams Teacher Industrial Arts Relationship Specialty Start Date End Date Javier Song MD PCP - General Internal Medicine 10/01/16 Additional Source Comments The information contained in this document represents components of the legal health record. It is not the complete legal health record.[facility]
--- OUTSIDE RECORDS SUMMARY | 2025-09-05 15:23 | XMS_ITS | Encounter Summary ---
Author Organization [facility] Address [address] [place] [address] Phone Care Team Providers Care Novelty Twister Tender Name Role Phone Monster Hair MD Primary Care Provider [phone] Javier Song MD Primary Care Provider [phone] Encounter Details Date Type Department Care Team (Late st Contact Info) Description 07/10/2016 Telephone [facility] [address] [place] [address], [address] Floor, [address] [place] [address] Marce Cassidy MD [address] [place] [address] [address] [place] [address] [email or web address] Social History Tobacco Use Types Packs/Day [...] on filedocumented in this encounter Care Teams Novelty Twister Tender Relationship Specialty Start Date End Date Monster Hair MD [address] [place] [address] PCP - General Internal Medicine 06/12/16 09/30/16 Javier Song MD [address] [place] [address] [email or web address] PCP - General Internal Medicine 10/01/16 documented as of this encounter Additional Source Comments The information contained in this document represents components of the legal health record. It is not the complete legal health record.[facility]
--- OUTSIDE RECORDS SUMMARY | 2025-09-05 15:23 | XMS_ITS | Encounter Summary ---
Author Organization [facility] Address [address] [place] [address] Phone Care Team Providers Care Supervisor Lamp Shades Name Role Phone Monster Hair MD Primary Care Provider [phone] Javier Song MD Primary Care Provider [phone] Encounter Details Date Type Department Care Team (Late st Contact Info) Description 07/08/[address] [facility] [address] [place] [address], [address] Floor, [address] [place] [address] Marce Cassidy MD [address] [place] [address] [address] [place] [address] [email or web address] Social History Tobacco Use Types Packs/Day [...] on filedocumented in this encounter Care Teams Supervisor Lamp Shades Relationship Specialty Start Date End Date Monster Hair MD [address] [place] [address] PCP - General Internal Medicine 06/12/16 09/30/16 Javier Song MD [address] [place] [address] [email or web address] PCP - General Internal Medicine 10/01/16 documented as of this encounter Additional Source Comments The information contained in this document represents components of the legal health record. It is not the complete legal health record.[facility]
== END 2025-09-05 14:32 | disposition home or self-care (01) ==
LOC: HO.HMCC 13:18
PROVIDERS: PCP Internal Medicine; Visit Provider Internal Medicine
DX: Z23 Encounter for immunization (principal)

== ENCOUNTER → 2025-09-05 13:17 | Outpatient (BNVA) | payer OTHER, SELFPAY | PROVIDERS: PCP Internal Medicine; Visit Provider Internal Medicine | DX: Z00.01 Encounter for general adult medical examination with abnormal findings (principal); Z23 Encounter for immunization; I10 Essential (primary) hypertension; F41.1 Generalized anxiety disorder; Z71.89 Other specified counseling; L73.2 Hidradenitis suppurativa | CPT/HCPCS: 90471; 90656; 96127; 99396; 99497 ==

== ENCOUNTER → 2025-09-30 09:59 | Outpatient (BNVA) | payer OTHER, SELFPAY | PROVIDERS: PCP Internal Medicine | DX: Z01.30 Encounter for examination of blood pressure without abnormal findings (principal) | CPT/HCPCS: 99211 ==

== ENCOUNTER → 2025-10-14 08:29 | Outpatient (BNVA) | payer OTHER, SELFPAY | PROVIDERS: PCP Internal Medicine | DX: I10 Essential (primary) hypertension (principal) | CPT/HCPCS: 99211 ==

== ENCOUNTER 2025-10-17 08:19 | Outpatient (AMB) | payer OTHER, SELFPAY ==
--- OUTSIDE RECORDS SUMMARY | 2014-09-05 | XMS_ITS | Encounter Summary ---
Author Organization [facility] Address [address] [facility] [address] [place] [address] Phone Care Team Providers Care Helpdesk Specialist Name Role Phone Unavailable Primary Care Provider Unavailabl e Encounter Details Date Type Department Care Team (Late st Contact Info) Description 09/05/2014 Hospital Encounter [facility] [address] [place] [address] Marce Cassidy MD 55 [facility] [address] [place] [phone] [email or web address] Social History Tobacco Use Types Packs/Day Years Used Date Smoking Tobacco: Never Assessed Education Answer Date Recorded Are you interested in more education? Not on cody e 02/21/2023 Are you concerned about learning? Not on file 02/21/2023 No 02/21/2023 No 02/21/2023 Digital Access Answer Date Recorded No 03/24/2023 No 03/24/2023 No 03/24/2023 Reliable internet access at home? Not on file 03/24/2023 Device with a working camera? Not on file Comments Unknown Sex and Gender Information Value Date Recorded Sex Assigned at Not on file Legal Sex Female 1:19 PM EDT Gender Identity Not on file Sexual Orientation Not on file documented as of this encounter Plan of Treatment Not on file documented as of this encounter Procedures Procedure Name Priority Date/Time Associated Diagnosis Comments CT CHEST OUTSIDE (NO INTERPRETATION) Routine 09/05/2014 12:00 AM EST documented in this encounter Results * CT Chest Outside (No Interpretation) (09/05/2014 12:00 AM EST) Narrative [facility] INTER[facility]ACES - 07/05/2016 11:05 AM EDT This study is for PACS storage only and not for interpretation. Procedure Note SYSTEMGENERATED, DOCUMENTATION - 07/05/2016 This study is for PACS storage only and not for interpretation. us Marce Cassidy MD IMG OUTSIDE IMAGING W/OUT INTERPRETATION Final Result [facility] documented in this encounter Visit Diagnoses Not on filedocumented in this encounter Additional Source Comments The information contained in this document represents components of the legal health record. It is not the complete legal health record.[facility]
--- OUTSIDE RECORDS SUMMARY | 2015-01-24 23:00 | XMS_ITS | Encounter Summary ---
Author Organization [facility] Address [address] [facility] [address] [place] [address] Phone Care Team Providers Care Cut Off Sawyer Log Name Role Phone Unavailable Primary Care Provider Unavailabl e Encounter Details Date Type Department Care Team (Late st Contact Info) Description 01/25/2015 Hospital Encounter [facility] [address] [place] [address] Marce Cassidy MD 55 [facility] [address] [place] [phone] [email or web address] Social History Tobacco Use Types [...] (No Interpretation) (01/25/2015 12:00 AM EDT) Narrative [facility] [place] - 07/05/2016 10:53 AM EDT This study is for PACS storage only and not for interpretation. Procedure Note SYSTEMGENERATED, DOCUMENTATION - 07/05/2016 This study is for PACS storage only and not for interpretation. us Marce Cassidy MD IMG OUTSIDE IMAGING W/OUT INTERPRETATION Final Result [facility] documented in this encounter Visit Diagnoses Not on filedocumented in this encounter Additional Source Comments The information contained in this document represents components of the legal health record. It is not the complete legal health record.[facility]
--- OUTSIDE RECORDS SUMMARY | 2016-06-10 23:00 | XMS_ITS | Encounter Summary ---
Author Organization [facility] Address [address] [facility] [address] [place] [address] Phone Care Team Providers Care Practice Business Asst Name Role Phone Unavailable Primary Care Provider Unavailabl e Encounter Details Date Type Department Care Team (Late st Contact Info) Description 06/11/2016 Hospital Encounter [facility] [address] [place] [address] Marce Cassidy MD 55 [facility] [address] [place] [phone] [email or web address] Social History Tobacco Use Types [...] Procedure Name Priority Date/Time Associated Diagnosis Comments XR CHEST OUTSIDE (NO INTERPRETATION) Routine 06/11/2016 12:00 AM EDT documented in this encounter Results * XR Chest Outside (No Interpretation) (06/11/2016 12:00 AM EDT) Narrative [facility] IMG INTERFACES - 07/05/2016 10:00 AM EDT This study is for PACS storage only and not for interpretation. Procedure Note SYSTEMGENERATED, DOCUMENTATION - 07/05/2016 This study is for PACS storage only and not for interpretation. us Marce Cassidy MD IMG OUTSIDE IMAGING W/OUT INTERPRETATION Final Result [facility] IMG INTERFACES documented in this encounter Visit Diagnoses Not on filedocumented in this encounter Additional Source Comments The information contained in this document represents components of the legal health record. It is not the complete legal health record.[facility]
--- OUTSIDE RECORDS SUMMARY | 2025-10-17 08:26 | XMS_ITS | Clinical Summary ---
Author Organization [facility] Address [address] [place] [address] Phone Care Team Providers Care Communication Center Coordinator Name Role Phone Javier Song MD Primary Care Provider [phone] Allergies Active Allergy Reactions Criticality Noted Date [...] topic Medical Devices Not on file Insurance [employer] Member Subscriber Plan / Payer ( fective 2016-Present) Name:Angelika Deleon Relation to Subscriber:Self Name:Davearaceli Angelika Payer ID:Not on file Type:Medicaid Address: [place] [id number] Care Teams Communication Center Coordinator Relationship Specialty Start Date End Date Javier Song MD PCP - General Internal Medicine 10/01/16 Additional Source Comments The information contained in this document represents components of the legal health record. It is not the complete legal health record.[facility]
--- OUTSIDE RECORDS SUMMARY | 2025-10-17 08:26 | XMS_ITS | Encounter Summary ---
Author Organization [facility] Address [address] [place] [address] Phone Care Team Providers Care Database Security Expert Name Role Phone Monster Hair MD Primary Care Provider [phone] Javier Song MD Primary Care Provider [phone] Encounter Details Date Type Department Care Team (Late st Contact Info) Description 07/10/2016 Telephone [facility] [address] [place] [address], [address] Floor, [address] [place] [address] Marce Cassidy MD [address] [place] [address] [address] [place] [address] [email or web address] Social History Tobacco Use Types Packs/Day [...] on filedocumented in this encounter Care Teams Database Security Expert Relationship Specialty Start Date End Date Monster Hair MD [address] [place] [address] PCP - General Internal Medicine 06/12/16 09/30/16 Javier Song MD [address] [place] [address] [email or web address] PCP - General Internal Medicine 10/01/16 documented as of this encounter Additional Source Comments The information contained in this document represents components of the legal health record. It is not the complete legal health record.[facility]
--- OUTSIDE RECORDS SUMMARY | 2025-10-17 08:26 | XMS_ITS | Clinical Summary ---
Author Organization [facility] Address [address] [place] [address] Care Team Providers Care Supervisor Heat Treating Name Role Phone HansonHayden [email or web address] More Primary Care Provider [phone] Allergies Active Allergy Reactions Criticality Noted Date Comments Sulfa (Sulfonamide Antibiotics) Swelling 06/2016 Tongue Medications MULTIVIT &MINERALS/ZOE US FUM (MULTI VITAMIN ORAL) Take by mouth. Active CHOLECALCIFEROL , VITAMIN D3, (VITAMIN D3 ORAL) Take by mouth. Active LORazepam (ATIVAN) 1 MG tablet 07/14/2017 Active FLUoxetine (PROzac) 40 MG capsule 07/02/2017 Active multivitamin (THERAGRAN) tablet Take 1 tablet by mouth. Active ALPRAZolam (XANAX) 1 MG tablet Take 1 mg by mouth at bedtime as needed for insomnia. Active Active Problems Problem Noted Date Diagnosed Date Weakness 10/17/2016 Anxiety 06/17/2016 Family History Medical History Relation Comments Rheum arthritis Mother Coronary artery disease Other 1 maternal family relatives Hypertension Other 2 Relation Status Comments Mother Other 1 Other 2 Social History Tobacco Use Types Packs/Day Years Used Date Smoking Tobacco: Former Cigarettes 0.5 7 0 11/17/1981 - 11/17/1988 Smokeless Tobacco: Never Alcohol Use Standard Drinks/Week Comments No 0 (1 standard drink = 0.6 oz pur e alcohol) Comments Unknown Sex and Gender Information Value Date Recorded Sex Assigned at Not on file Legal Sex Female 10:36 AM EST Gender Identity Not on file Sexual Orientation Not on file Last Filed Vital Signs Vital Sign Reading Time Taken Comments Blood Pressure 133/88 11/14/2017 2:15 PM EST Pulse 92 11/14/2017 2:15 PM EST Temperature 36.7 C (98.1 F) 10/18/2016 7:57 AM EST Respiratory Rate 18 10/18/2016 7:57 AM EST Oxygen Saturation 98% 10/18/2016 7:57 AM EST Inhaled Oxygen Concentration - - Weight 79.4 kg (175 lb) 10/17/2016 1:12 PM EST Height 172.7 cm (5' 8 ) 10/17/2016 1:12 PM EST Body Mass Index 26.61 10/17/2016 1:12 PM EST Plan of Treatment Not on file Insurance [facility] PUBLIC PLANS Advance Directives * Full Code (Latest Code Status on File) Date Activated Date Inactivated Comments 10/17/2016 4:03 PM 10/18/2016 8:02 PM Care Teams Supervisor Heat Treating Relationship Specialty Start Date End Date Javier Song PCP - General 10/17/16
--- OUTSIDE RECORDS SUMMARY | 2025-10-17 08:26 | XMS_ITS | Encounter Summary ---
Author Organization [facility] Address [address] [place] [address] Phone Care Team Providers Care Chute Builder Name Role Phone Monster Hair MD Primary Care Provider [phone] Javier Song MD Primary Care Provider [phone] Encounter Details Date Type Department Care Team (Late st Contact Info) Description 07/08/2016 Telephone [facility]rosis [facility] [address] [place] [address], [address] Floor, [address] [place] [address] Marce Cassidy MD [address] [place] [address] [address] [place] [address] [email or web address] Social History Tobacco Use Types Packs/Day [...] on filedocumented in this encounter Care Teams Chute Builder Relationship Specialty Start Date End Date Monster Hair MD [address] [place] [address] PCP - General Internal Medicine 06/12/16 09/30/16 Javier Song MD [address] [place] [address] [email or web address] PCP - General Internal Medicine 10/01/16 documented as of this encounter Additional Source Comments The information contained in this document represents components of the legal health record. It is not the complete legal health record.[facility]
--- NOTE | 2025-10-17 08:31 | A.OFFVIS_ITS ---
Intake Visit Reasons: 5M ANXIETY Allergies Aluminum Allergy (Unknown, Verified 10/17/25 08:34) tingling, rash, rash nickel (NICKEL) Allergy (Unknown, Verified 10/17/25 08:34) RASH Sulfa (Sulfonamide Antibiotics) (SULFA (SULFONAMIDE ANTIBIOTICS)) Allergy (Unknown, Verified 10/17/25 08:34) DIFF BREATHING, rash, oral swelling, SOB Medication List - Last Reconciled 10/17/25 by Jade Schofield, MARLEN amlodipine 10 mg PO DAILY aspirin (Adult Low Dose Aspirin) 81 mg PO DAILY cholecalciferol (vitamin D3) 50 mcg PO DAILY clonidine HCl 0.2 mg PO BEDTIME fluoxetine 40 mg PO DAILY 90 days lorazepam 1 mg PO BEDTIME 30 days metoprolol succinate ER 25 mg PO DAILY multivitamin (Daily Multi-Vitamin tablet) 1 tab PO DAILY HPI Comments Details: She was doing okay. She was taking lorazepam 1mg in the evening and fluoxetine in the morning. Still gets some occasional twitches. Mood and anxiety have been okay.?Exercising more. No issues swallowing. Having some intermittent numbness to L fingers after BP meds changed and are being adjusted. She does a lot of typing at work. 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 MRI C spine which was essentially negative. She was at one point convinced she has MS. Saw multiple other physicians for GI and other. Had multiple somatic complaints including blurred left eye, dysphagia on left side and feels she cannot swallow, burning/ tingling tongue and metallic taste, left side numbness from head down, numbness in hands some nights, L>R, decreased smell without sinus symptoms, twitches non stop and excrutiating pain in muscles. Had urine cortisol and saliva tests which were negative for Cushings. Eye exam was normal. Had six-month history of intermittent tingling in the left cheek on and off, sometimes associated with tingling in the left hand which may also occur in the end it. The symptoms last for a few hours. She's had a heart exam done which was negative. She gets occasional sleepy feeling and numbness in her feet left more than right. Sometimes she wakes up with the left hand feeling like it is big. She's also had episodes where suddenly her eyes will jump. This lasts for a second and has been going on since childhood. She has had a history of anxiety and depression as well as GERD [facility] Medical History (Updated 10/17/25 @ 08:34 by Jade Schofield CNP) Somatoform disorder Carpal tunnel syndrome History of thyroid nodule Encounter for routine adult health examination without abnormal findings Multinodular thyroid Essential hypertension Lymphopenia Generalized anxiety disorder BERTRAND (nonalcoholic steatohepatitis) GERD (gastroesophageal reflux disease) Irritable bowel syndrome with diarrhea Surgical History History of esophagogastroduodenoscopy (EGD) H/O colonoscopy Family History Mother Rheumatoid arthritis Social History Household Members: Children Housing: Apartment Alcohol intake: current Alcohol intake frequency: does not drink Patient Tobacco Use Status: Former Tobacco user e-Cigarette/Vaping Use: Never Used service: No Current occupational status: employed Cognitive needs: No Hearing needs: No Vision needs: No Review of Systems Const Denies chills, Denies daytime sleepiness, Denies difficulty sleeping, Denies fatigue, Denies fever(s), Denies frequent falls, Denies headache(s), Denies increased appetite, Denies poor appetite, Denies snoring, Denies weakness, Denies weight gain and Denies weight loss Eyes Denies loss of vision ENT Denies vertigo, Denies dizziness, Denies headache(s) and Denies neck pain Card Denies chest pain at rest, Denies chest pain with activity, Denies syncope, Denies leg edema, Denies palpitations, Denies dyspnea and Denies dyspnea on exertion Resp Denies cough, Denies dyspnea, Denies dyspnea on exertion and Denies snoring GI Denies abdominal pain, Denies constipation, Denies heartburn, Denies diarrhea and Denies nausea Denies urinary frequency, Denies urinary incontinence and Denies urinary urgency Musc Denies abnormal gait, Denies back pain, Denies myalgias, Denies arthralgias, Denies neck pain, Reports numbness and Reports tingling Neuro Denies abnormal gait, Denies vertigo, Denies dizziness, Denies syncope, Denies frequent falls, Denies headache(s), Denies lack of coordination, Denies loss of vision, Denies memory loss, Reports numbness, Denies Other visual disturbances, Denies restless legs, Denies seizure-like activity, Reports tingling, Denies paresthesias, Denies tremor(s) and Denies weakness Psych Reports anxiety, Denies depression, Denies auditory hallucinations, Denies memory loss and Denies visual hallucinations Endo Denies fatigue and Denies palpitations Physical Exam Const Other: General Appearance:? normal, in no acute distress. Heart:? S1, S2 normal, no murmurs. Lungs:? clear anteriorly and posteriorly. Musculoskeletal:? normal. Extremities:? no edema. Psych:? alert, oriented, cognitive function intact, cooperative with exam. Neuro Other: Abnormal Neurological Findings:?5-/5 L APB Mental Status: alert and oriented X 3. Normal attention, orientation, memory, and affect. Cranial Nerves: Pupils are equal, round, and reactive to light. External ocular muscles are intact. Visual sung are full, no ptosis. Face is symmetrical, no facial weakness or droop. Facial sensations are normal. Tongue protrudes in midline. Palate elevates symmetrically. Shoulder shrugging is normal Motor Examination: As above, normal muscle tone, bulk and strength. No atrophy or fasciculations. No drift of the extended upper extremities. DTR 2+. Plantars are flexor. Sensory Exam: Normal light touch, temperature, pinprick, vibration, and joint- position sensations. Rhomberg sign is absent. Coordination: No ataxia. No titubation. Gait Exam: Within normal limits. Cerebellar Signs: [id number] is okay. Extrapyramidal System: No tremor, rigidity with normal facial expressions. No bradykinesia. No bradyphrenia. Normal arm swing and posture. No propulsion or retropulsion. Speech: Normal. Results Reviewed Results Reviewed: NCV/EMG UE 2015: WNL Assessment & Plan Assessment & Plan (1) Anxiety disorder: Code(s): F41.9 - Anxiety disorder, unspecified Category: Medical Qualifiers: Anxiety disorder type: unspecified anxiety disorder Qualified Code(s): F41.9 - Anxiety disorder, unspecified Plan: Continue fluoxetine 40mg 1 tablet daily. Continue lorazepam 1mg 1 tablet at bedtime #30 for 30 days. Discussed option for NCV/EMG UE, declining at this time. Follow up in 6 months or sooner as needed. (2) Somatoform disorder: Code(s): F45.9 - Somatoform disorder, unspecified Category: Medical Plan . Coding Level of Care Code Est Pt Level 4 (47848) Diagnoses Anxiety disorder, unspecified type F41.9 Anxiety disorder type: unspecified anxiety disorder Somatoform disorder F45.9
== END 2025-10-17 08:46 | disposition home or self-care (01) ==
LOC: HO.HSM 08:20
PROVIDERS: PCP Internal Medicine; Referring Provider Internal Medicine; Visit Provider Registered Nurse
DX: F41.9 Anxiety disorder, unspecified (principal); F45.9 Somatoform disorder, unspecified
CPT/HCPCS: 99214

== ENCOUNTER → 2025-10-17 08:19 | Outpatient (BNVA) | payer OTHER, SELFPAY | PROVIDERS: PCP Internal Medicine; Referring Provider Internal Medicine; Visit Provider Registered Nurse | DX: F41.9 Anxiety disorder, unspecified (principal); F45.9 Somatoform disorder, unspecified; Z79.899 Other long term (current) drug therapy | CPT/HCPCS: 99212 ==